=== PATIENT | male | born 1975 | race Caucasian/White ===

== ENCOUNTER 2021-12-23 02:33 | Emergency (ER) | payer OTHER, SELFPAY ==
--- NOTE | ~2021-12-23 | XR_ITS ---
EXAMINATION: XR SHOULDER, RIGHT CLINICAL INFORMATION: Pain COMPARISON: None TECHNIQUE: Three views of the right shoulder. FINDINGS: No acute fracture or dislocation. Small marginal ossified is along the acromioclavicular joint. Small subacromial enthesophyte. Small deltoid original enthesophyte. Soft tissues otherwise unremarkable. XR/XR shoulder RT min 2V IMPRESSION: No acute fracture or dislocation.
[2021-12-23 02:43] VITALS: BP 140/95; PULSE 88; RESP 16; TEMP 36.8; O2SAT 98; BMI 32.5
--- NOTE | 2021-12-23 03:03 | ED.EXTPRO ---
HPI - Extremity Problem General Chief complaint: Extremity Injury, Upper Stated complaint: Shoulder pain Time Seen by Provider: 12/23/21 03:03 Source: patient Mode of arrival: ambulatory Limitations: no limitations History of Present Illness HPI Narrative: Patient been having right shoulder pain for last 3 weeks after minor lifting of the weight. Tonight patient was over reaching rock picker his child and noticed increased pain pain localized on the lateral aspect of the right shoulder without any deformity no sensory level no weakness of the hand patient unable to lift the right arm above 70 degree because the pain Related Data Previous Rx's Medication Instructions Recorded ibuprofen 600 mg tablet 600 mg PO Q6H PRN pain #30 tabs 12/23/21 oxycodone-acetaminophen 5 mg-325 1 tab PO Q6H PRN pain #20 tabs 12/23/21 mg tablet (Percocet) Allergies Allergy/AdvReac Type Severity Reaction Status Date / Time sulfamethoxazole Allergy Mild SEVERE Unverified 03/25/20 17:51 [From Bactrim] ITCHINESS trimethoprim [From Bactrim] Allergy Mild SEVERE Unverified 03/25/20 17:51 ITCHINESS clindamycin [Clindamycin] Allergy Unknown RASH Unverified 03/25/20 17:51 Sulfa (Sulfonamide Allergy Unknown Verified 05/03/17 00:00 Antibiotics) Clindamycin HCl Allergy Unknown Uncoded 05/03/17 00:00 From KEFLEX Allergy Unknown RASH Uncoded 03/25/20 17:51 Review of Systems Review of Systems: Yes all other systems are reviewed and are negative [facility] Social History Social History Advance Directives: No Physical Exam Vital Signs: Vital Signs: Last Vital Signs Temp 98.2 F 12/23/21 02:43 Pulse 88 12/23/21 02:43 Resp 16 12/23/21 02:43 BP 140/95 H 12/23/21 02:43 Pulse Ox 98 12/23/21 02:43 O2 Del Method 12/23/21 02:43 BMI result Body Mass Index 32.5 Appearance: Alert. Oriented X3. No acute distress. Neck: Normal inspection. Neck supple. CVS: Normal heart rate and rhythm. Pulses normal. Respiratory: No respiratory distress. Equal air entry bilateral, Abdomen: Soft and nontender. Bowel sounds are present, Skin: Skin warm and dry. Normal skin color. Normal skin turgor. Extremities: No lower extremity edema. No calf tenderness , Tash's test positive on the right arm also painful external rotation neurovascular intact Neuro: Oriented X 3. No motor deficit. MDM - Extremity (Nontraumatic) MDM Narrative Medical decision making narrative: Patient clinically has R supraspinatus strain questionable partial tear with Tash's test positive, sling appliedand advised to follow-up with orthopedic Discharge Plan Discharge Clinical Impression: Rotator cuff strain Patient Disposition: Home, Self-Care Instructions: Rotator Cuff Injury (ED) Additional Instructions: You likely have partial rotator cuff tear Wear the sling for support Pain medication as advised Follow with Orthopedics for further evaluation including MRI Prescriptions: New oxycodone-acetaminophen [Percocet] 5-325 mg tablet 1 tab PO Q6H PRN (Reason: pain) Qty: 20 0RF Rx Instructions: Partial Fill upon patient request. ibuprofen 600 mg tablet 600 mg PO Q6H PRN (Reason: pain) Qty: 30 0RF
== END 2021-12-23 04:06 | disposition home or self-care (01) ==
PROVIDERS: Emergency Provider Internal Medicine
DX: S46.011A Strain of muscle(s) and tendon(s) of the rotator cuff of right shoulder, initial encounter (principal); X50.0XXA Overexertion from strenuous movement or load, initial encounter; Y93.9 Activity, unspecified; Y92.9 Unspecified place or not applicable; Y99.9 Unspecified external cause status
CPT/HCPCS: 73030; 99282; 99283

== ENCOUNTER 2023-01-23 13:41 | Outpatient (AMB) | payer OTHER, SELFPAY ==
--- NOTE | 2023-01-23 13:50 | MHC.PC.OV ---
Vital Signs 01/23/23 13:53 Height 5 ft 9 in Weight 234 lb BMI 34.6 BP 128/86 Blood Pressure Location Rt brachial Position Sitting Pulse 83 Pulse Source Pulse Oximeter Pulse Oximetry (%) 97 Oxygen Delivery Method Room Air Intake Visit Reasons: SCREENING UNIT REGISTERED NURSE-Requesting Physical Exam Allergies sulfamethoxazole [From Bactrim] Allergy (Mild, Verified 01/23/23 13:55) SEVERE ITCHINESS trimethoprim [From Bactrim] Allergy (Mild, Verified 01/23/23 13:55) SEVERE ITCHINESS clindamycin [Clindamycin] Allergy (Unknown, Verified 01/23/23 13:55) RASH Sulfa (Sulfonamide Antibiotics) Allergy (Unknown, Verified 01/23/23 13:55) breathing Clindamycin HCl Allergy (Unknown, Uncoded 01/23/23 13:55) Wheezing From KEFLEX Allergy (Unknown, Uncoded 03/25/20 17:51) RASH Medication List - Last Reconciled 01/23/23 by Jc Kaiser MD Tobacco use date assessed: 01/23/23 Dental Screening Dental Screen Date: 01/23/23 Did you have a dental visit in the last 12 months?: Yes Did you have a dental problem in the last 6 months where you did not have access to dental care?: No Was dental information given to patient?: No HPI SCREENING UNIT REGISTERED NURSE-Requesting Physical Exam HPI Details 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, 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, patient says that it is not exactly a pain but a feeling of discomfort which comes suddenly when he is upset or have a very physical day and then it gets better History of renal calculi, off and on having a weak urinary streams and sometimes frequency of urination Patient have lot of different size and color of most in the back has not seen any senior architect/design manager BMI is elevated at 34.6, need to lose weight Plan: I have ordered labs to be done fasting Flomax 0.4 mg sent to see if patient benefit from it Dermatology referral placed Follow-up 6 weeks [facility] Social History Housing: Apartment Patient Tobacco Use Status: Never used Tobacco e-Cigarette/Vaping Use: Never Used Cognitive needs: No Hearing needs: No Vision needs: No Questionnaire AUDIT C Alcohol Use Questionnaire (AUDIT-C) 1. How often do you have a drink containing alcohol?: Never 3. How often do you have six or more drinks on one occasion?: Never Total Score: 0 Score Reviewed/Action Taken: Yes Review of Systems Const Denies chills, Denies fever(s) and Denies headache(s) Eyes Denies blurry vision ENT Denies headache(s), Denies nasal discharge, Denies nasal obstruction, Denies odynophagia and Denies sinus pain Card Denies chest pain at rest and Denies chest pain with activity Resp Denies cough and Denies hemoptysis GI Denies diarrhea, Denies odynophagia, Denies vomiting and Denies hematemesis Reports as per HPI Musc Denies abnormal gait Skin/Breast Reports as per HPI Neuro Denies Neuro-related abnormal movements, Denies Abnormal speech present, Denies abnormal gait, Denies headache(s) and Denies Sensory deficit (Neuro) Psych Denies mood swings and Denies paranoia Endo Reports as per HPI Prasanna/Lymph Reports as per HPI Aller/Immun Reports as per HPI Physical exam (Primary Care) Vital Signs: Last Vital Signs Pulse 83 01/23/23 13:53 BP 128/86 01/23/23 13:53 Pulse Ox 97 01/23/23 13:53 Oxygen Delivery Method Room Air 01/23/23 13:53 BMI result Body Mass Index 34.6 Tobacco/Smoking Status: Tobacco use Status Tobacco use date assessed 01/23/23 01/23/23 13:58 Patient Tobacco Use Status Never used Tobacco 01/23/23 13:58 e-Cigarette/Vaping Use Never Used 01/23/23 13:58 Const General: cooperative, comfortable and no acute distress Orientation/consciousness: patient oriented x3 HENMT Head: Yes normocephalic and Yes atraumatic Eyes General: appearance normal, both eyes and all related structures Pupils: Equal, round and reactive pupils present EOM: EOMs intact bilaterally Neck Neck: Yes supple and No lymphadenopathy Thyroid: Thyroid normal Lymphatic: no lymphadenopathy noted Resp Effort & Inspection: normal respiratory effort and able to speak in complete sentences Auscultation: clear to auscultation bilaterally Cardio Heart sounds: S1 normal heart sound present and S2 normal heart sound present GI Palpation (GI): Soft to palpation and nontender Auscultation: normal bowel sounds General: Yes no CVA tenderness Back/Spine/Pelvis Back: no CVA tenderness Skin General skin exam: elasticity normal and turgor normal Neuro General: patient oriented x3 and gait normal Cranial nerves: Yes Equal, round and reactive pupils present Speech: No Abnormal speech present Sensory Exam: No Sensory deficit (Neuro) Coordination: tandem gait normal and Romberg test negative Extrem General: Yes normal exam except as noted and No edema Assessment and Plan Assessment & Plan (1) Encounter for general adult medical examination with abnormal findings: Code(s): Z00.01 - Encounter for general adult medical examination with abnormal findings (2) History of renal calculi: Code(s): Z87.442 - Personal history of urinary calculi (3) Lower back pain: Code(s): M54.50 - Low back pain, unspecified (4) Bladder disorder: Code(s): N32.9 - Bladder disorder, unspecified (5) Obesity due to excess calories: Code(s): E66.09 - Other obesity due to excess calories (6) Marijuana user: Code(s): F12.90 - Cannabis use, unspecified, uncomplicated Plan 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, 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, patient says that it is not exactly a pain but a feeling of discomfort which comes suddenly when he is upset or have a very physical day and then it gets better History of renal calculi, off and on having a weak urinary streams and sometimes frequency of urination Patient have lot of different size and color of most in the back has not seen any senior architect/design manager BMI is elevated at 34.6, need to lose weight Plan: I have ordered labs to be done fasting Flomax 0.4 mg sent to see if patient benefit from it Dermatology referral placed Smokes marijuana daily Follow-up 6 weeks Orders: Orders Comprehensive [place]. Panel Fast Today E66.09 - Other obesity due to excess calories, M54.50 - Low back pain, unspecified, N32.9 - Bladder disorder, unspecified, Z00.01 - Encounter for general adult medical examination with abnormal findings, Z87.442 - Personal history of urinary calculi Lipid Panel Today E66.09 - Other obesity due to excess calories, M54.50 - Low back pain, unspecified, N32.9 - Bladder disorder, unspecified, Z00.01 - Encounter for general adult medical examination with abnormal findings, Z87.442 - Personal history of urinary calculi Prostate Specific Antigen Today E66.09 - Other obesity due to excess calories, M54.50 - Low back pain, unspecified, N32.9 - Bladder disorder, unspecified, Z00.01 - Encounter for general adult medical examination with abnormal findings, Z87.442 - Personal history of urinary calculi Vitamin D 25-OH (D2 and D3) Today E66.09 - Other obesity due to excess calories, M54.50 - Low back pain, unspecified, N32.9 - Bladder disorder, unspecified, Z00.01 - Encounter for general adult medical examination with abnormal findings, Z87.442 - Personal history of urinary calculi Complete Blood Count Auto Diff Today E66.09 - Other obesity due to excess calories, M54.50 - Low back pain, unspecified, N32.9 - Bladder disorder, unspecified, Z00.01 - Encounter for general adult medical examination with abnormal findings, Z87.442 - Personal history of urinary calculi TSH reflex Free T4 Today E66.09 - Other obesity due to excess calories Referrals Dermatology Referral Z12.83 - Encounter for screening for malignant neoplasm of skin Medications: New tamsulosin (Flomax) 0.4 mg PO DAILY 30 caps 0RF Coding Level of Care Code New Pt Prev Care 40-64y(20360) Diagnoses Encounter for general adult medical examination with abnormal findings Z00.01 History of renal calculi Z87.442 Lower back pain M54.50 Bladder disorder N32.9 Obesity due to excess calories E66.09 Marijuana user F12.90
[2023-01-23 13:53] VITALS: BP 128/86; PULSE 83; O2SAT 97; BMI 34.6
== END 2023-01-23 14:20 | disposition home or self-care (01) ==
PROVIDERS: Visit Provider Internal Medicine
DX: Z00.01 Encounter for general adult medical examination with abnormal findings (principal); Z87.442 Personal history of urinary calculi; Z68.34 Body mass index [BMI] 34.0-34.9, adult; M54.50 Low back pain, unspecified; N32.9 Bladder disorder, unspecified; E66.09 Other obesity due to excess calories; F12.90 Cannabis use, unspecified, uncomplicated
CPT/HCPCS: 99386

== ENCOUNTER 2023-01-24 09:27 | Outpatient (REF) | payer OTHER, SELFPAY ==
[2023-01-24 11:30] LABS: MANUAL DIFF FLAG NO
[2023-01-24 11:42] LABS: Basophils Percent Auto 0.5 % (0-2); Eosinophils Absolute Auto 0.2 X10*3/uL (0.0-0.4); Eosinophils Percent Auto 2.6 % (0-4); Hematocrit 46.3 % (42.0-52.0); Hemoglobin 15.4 g/dl (14.0-18.0); Imm Gran Abs Auto 0.04 X10*3/uL (0.00-0.03); Imm Gran Pct Auto 0.5 % (0.0-0.4); Lymphocytes Absolute Auto 2.2 X10*3/uL (1.2-4.9); Lymphocytes Percent Auto 29.4 % (20-40); Mean Corpuscular HGB Conc 33.3 g/dl (31.0-36.0); Mean Corpuscular Hemoglobin 30.1 pg (27.0-33.0); Mean Corpuscular Volume 90.4 fL (80.0-98.0); Mean Platelet Volume 9.9 fL (9.4-12.4); Monocytes Absolute Auto 0.6 X10*3/uL (0.1-1.2); Monocytes Percent Auto 7.5 % (2-11); Neutrophils Absolute Auto 4.4 x10*3/uL (2.0-8.3); Neutrophils Percent Auto 59.5 % (45-73); Platelet Count 244 X10*3/uL (160-400); Red Blood Count 5.12 X10*6/uL (4.60-5.80); Red Cell Distribution Width 11.9 % (11.0-16.0); White Blood Count 7.3 X10*3/uL (4.8-10.8)
[2023-01-24 13:06] LABS: Prostate Specific Antigen 0.58 ng/mL (<0.05-4.0)
[2023-01-24 22:05] LABS: Alanine Aminotransferase 25 U/L (0-40); Albumin Level 4.4 g/dL (3.5-5.0); Alkaline Phosphatase 56 U/L (39-117); Anion Gap 14 (12-20); Aspartate Amino Transferase 17 U/L (5-37); Bilirubin Total 0.3 mg/dL (0.0-1.0); Blood Urea Nitrogen 12 mg/dL (9-16); Calcium 9.5 mg/dL (8.4-10.2); Carbon Dioxide 24 mmol/L (22-29); Chloride 107 mmol/L (96-108); Cholesterol 178 mg/dL; Estimated Glomerular Filt Rate > 60; Glucose Fasting 84 mg/dL (60-99); HDL Cholesterol 35 mg/dL; LDL Cholesterol Calculated 89 mg/dl; Potassium 3.8 mmol/L (3.3-5.1); Sodium 141 mmol/L (135-145); Total Protein 6.9 g/dL (6.5-8.0); Triglycerides 271 mg/dL
[2023-01-24 22:09] LABS: TSH reflex Free T4 1.09 uIU/mL (0.32-4.0)
[2023-01-30 17:59] LABS: Vitamin D 25-OH, D2 <4 ng/mL; Vitamin D 25-OH, D3 28 ng/mL; Vitamin D 25-OH, Total 28 ng/mL (30-100)
== END 2023-01-24 09:28 | disposition home or self-care (01) ==
LOC: HO.HMGCLDS 09:27
PROVIDERS: PCP Internal Medicine; Visit Provider Internal Medicine
DX: Z00.01 Encounter for general adult medical examination with abnormal findings (principal); Z12.5 Encounter for screening for malignant neoplasm of prostate; E66.09 Other obesity due to excess calories; M54.50 Low back pain, unspecified; N32.9 Bladder disorder, unspecified; Z87.442 Personal history of urinary calculi
CPT/HCPCS: 36415; 80053; 80061; 82306; 84153; 84443; 85025

== ENCOUNTER 2023-02-13 13:47 | Outpatient (AMB) | payer OTHER, SELFPAY ==
[2023-02-13 13:55] VITALS: BP 158/92; PULSE 104; O2SAT 97; BMI 34.5
--- NOTE | 2023-02-13 13:55 | MHC.PC.OV ---
Vital Signs 02/13/23 13:55 02/13/23 14:08 Height 5 ft 9 in Weight 233 lb 6 oz BMI 34.5 BP 158/92 H 146/78 H Blood Pressure Location Lt brachial Lt brachial Position Sitting Sitting Pulse 104 H Pulse Source Pulse Oximeter Pulse Oximetry (%) 97 Oxygen Delivery Method Room Air Intake Visit Reasons: 3wk follow up Allergies sulfamethoxazole [From Bactrim] Allergy (Mild, Verified 02/13/23 13:55) SEVERE ITCHINESS trimethoprim [From Bactrim] Allergy (Mild, Verified 02/13/23 13:55) SEVERE ITCHINESS clindamycin [Clindamycin] Allergy (Unknown, Verified 02/13/23 13:55) RASH Sulfa (Sulfonamide Antibiotics) Allergy (Unknown, Verified 02/13/23 13:55) breathing Clindamycin HCl Allergy (Unknown, Uncoded 01/23/23 13:55) Wheezing From KEFLEX Allergy (Unknown, Uncoded 03/25/20 17:51) RASH Medication List - Last Reconciled 02/13/23 by Jc Kaiser MD tamsulosin (Flomax) 0.4 mg PO DAILY Tobacco use date assessed: 02/13/23 Dental Screening Dental Screen Date: 02/13/23 Did you have a dental visit in the last 12 months?: Yes Did you have a dental problem in the last 6 months where you did not have access to dental care?: No Was dental information given to patient?: No HPI 3wk follow up HPI Details 3 wk f/u labs labs are fine except Vit D level is slightly low, i have sent Rx for that Flomax was started as he complained of freq of urination and weak stream He is feeling better tells me that he is urinating normally now I have sent a refill on Flomax he is to continue that Blood pressure is in did not with elevated heart rate we rechecked it after. 15 minutes And it was 146/78, pt has Bp monitor at home and he will start monitoring his bp he will let me know if readings run above 140 most of times Follow-up 6 months [facility] Social History Housing: Apartment Patient Tobacco Use Status: Never used Tobacco e-Cigarette/Vaping Use: Never Used Cognitive needs: No Hearing needs: No Vision needs: No Questionnaire PHQ-9 Over the last 2 weeks, how often have you been bothered by any of the following problems? 37396 - PHQ-9 Billing: Patient declined-do not bill Source: Developed by Drs. Armen Moore, Emily Fragoso, Hay Veloz and colleagues, with an educational richard from [employer]. AUDIT C Alcohol Use Questionnaire (AUDIT-C) 1. How often do you have a drink containing alcohol?: Never 3. How often do you have six or more drinks on one occasion?: Never Total Score: 0 Score Reviewed/Action Taken: Yes Review of Systems Const Denies chills and Denies fever(s) ENT Denies epistaxis and Denies nasal discharge Card Denies chest pain Resp Denies chest congestion, Denies cough and Denies hemoptysis GI Denies diarrhea and Denies nausea Skin/Breast Denies rash Neuro Reports no additional complaints Psych Reports no additional complaints Endo Reports no additional complaints Physical exam (Primary Care) Vital Signs: Last Vital Signs Pulse 104 H 02/13/23 13:55 BP 146/78 H 02/13/23 14:08 Pulse Ox 97 02/13/23 13:55 Oxygen Delivery Method Room Air 02/13/23 13:55 BMI result Body Mass Index 34.5 Tobacco/Smoking Status: Tobacco use Status Tobacco use date assessed 02/13/23 02/13/23 13:57 Patient Tobacco Use Status Never used Tobacco 02/13/23 13:57 e-Cigarette/Vaping Use Never Used 02/13/23 13:57 Const General: cooperative, comfortable and no acute distress Orientation/consciousness: patient oriented x3 HENID Head: Yes normocephalic Eyes General: appearance normal, both eyes and all related structures Neck Neck: Yes supple Resp Effort & Inspection: normal respiratory effort, no cough and no stridor Cardio Rhythm: regular rhythm Heart sounds: S1 normal heart sound present and S2 normal heart sound present Skin General skin exam: turgor normal Neuro General: patient oriented x3, tone normal and moves all extremities Extrem Right lower extremity: no edema Left lower extremity: no edema Assessment and Plan Assessment & Plan (1) BPH with urinary obstruction: Code(s): N40.1 - Benign prostatic hyperplasia with lower urinary tract symptoms; N13.8 - Other obstructive and reflux uropathy (2) Obesity due to excess calories: Code(s): E66.09 - Other obesity due to excess calories (3) Elevated blood pressure reading: Code(s): R03.0 - Elevated blood-pressure reading, without diagnosis of hypertension (4) Vitamin D deficiency: Code(s): E55.9 - Vitamin D deficiency, unspecified Plan 3 wk f/u labs labs are fine except Vit D level is slightly low, i have sent Rx for that Flomax was started as he complained of freq of urination and weak stream He is feeling better tells me that he is urinating normally now I have sent a refill on Flomax he is to continue that Blood pressure is in did not with elevated heart rate we rechecked it after. 15 minutes And it was 146/78, pt has Bp monitor at home and he will start monitoring his bp he will let me know if readings run above 140 most of times Follow-up 6 months Medications: New cholecalciferol (vitamin D3) 25 mcg PO DAILY 90 caps 1RF 90 days Refilled tamsulosin (Flomax) 0.4 mg PO DAILY 90 caps 1RF Coding Level of Care Code Est Pt Level 3 (76851) Diagnoses BPH with urinary obstruction N40.1; N13.8 Obesity due to excess calories E66.09 Elevated blood pressure reading R03.0 Vitamin D deficiency E55.9
[2023-02-13 14:08] VITALS: BP 146/78
== END 2023-02-13 15:16 | disposition home or self-care (01) ==
PROVIDERS: PCP Internal Medicine; Visit Provider Internal Medicine
DX: N40.1 Benign prostatic hyperplasia with lower urinary tract symptoms (principal); E55.9 Vitamin D deficiency, unspecified; E66.09 Other obesity due to excess calories; Z68.34 Body mass index [BMI] 34.0-34.9, adult; N13.8 Other obstructive and reflux uropathy; R03.0 Elevated blood-pressure reading, without diagnosis of hypertension
CPT/HCPCS: 99213

== ENCOUNTER 2023-08-24 09:09 | Outpatient (AMB) | payer OTHER, SELFPAY ==
[2023-08-24 09:14] VITALS: BP 136/92; PULSE 74; O2SAT 97; BMI 35.1
--- NOTE | 2023-08-24 09:14 | MHC.PC.OV ---
Vital Signs 08/24/23 09:14 Height 5 ft 9 in Weight 237 lb 6 oz BMI 35.1 BP 136/92 H Blood Pressure Location Lt brachial Position Sitting Pulse 74 Pulse Source Pulse Oximeter Pulse Oximetry (%) 97 Oxygen Delivery Method Room Air Intake Visit Reasons: follow up Allergies sulfamethoxazole [From Bactrim] Allergy (Mild, Verified 08/24/23 09:16) SEVERE ITCHINESS trimethoprim [From Bactrim] Allergy (Mild, Verified 08/24/23 09:16) SEVERE ITCHINESS clindamycin [Clindamycin] Allergy (Unknown, Verified 08/24/23 09:16) RASH Sulfa (Sulfonamide Antibiotics) Allergy (Unknown, Verified 08/24/23 09:16) breathing Clindamycin HCl Allergy (Unknown, Uncoded 01/23/23 13:55) Wheezing From KEFLEX Allergy (Unknown, Uncoded 03/25/20 17:51) RASH Medication List - Last Reconciled 08/24/23 by Jc Kaiser MD cholecalciferol (vitamin D3) 25 mcg PO DAILY 90 days tamsulosin (Flomax) 0.4 mg PO DAILY Tobacco use date assessed: 08/24/23 Dental Screening Dental Screen Date: 08/24/23 Did you have a dental visit in the last 12 months?: Yes Did you have a dental problem in the last 6 months where you did not have access to dental care?: No Was dental information given to patient?: Patient has dentist HPI follow up HPI Details Patient is a 47-year-old gentleman came in today for six-month follow-up appointment Patient is on Flomax for BPH, doing well, no side effects Vitamin-D deficiency: He took vitamin-D for a while and then stopped as he ran out of script I have sent refill for both medications He has appointment for physical exam in January we will repeat labs at that time. BMI is elevated 35.1 patient is aware and is trying to lose [facility] Social History Housing: Apartment Patient Tobacco Use Status: Never used Tobacco e-Cigarette/Vaping Use: Never Used Cognitive needs: No Hearing needs: No Vision needs: No Questionnaire AUDIT C Alcohol Use Questionnaire (AUDIT-C) 1. How often do you have a drink containing alcohol?: Never 3. How often do you have six or more drinks on one occasion?: Never Total Score: 0 Score Reviewed/Action Taken: Yes Review of Systems Const All systems reviewed & are unremarkable except as noted in HPI and below Physical exam (Primary Care) Vital Signs: Last Vital Signs Pulse 74 08/24/23 09:14 BP 136/92 H 08/24/23 09:14 Pulse Ox 97 08/24/23 09:14 Oxygen Delivery Method Room Air 08/24/23 09:14 BMI result Body Mass Index 35.1 Tobacco/Smoking Status: Tobacco use Status Tobacco use date assessed 08/24/23 08/24/23 09:17 Patient Tobacco Use Status Never used Tobacco 08/24/23 09:17 e-Cigarette/Vaping Use Never Used 08/24/23 09:17 Const General: no acute distress Orientation/consciousness: patient oriented x3 Eyes General: appearance normal, both eyes and all related structures Resp Effort & Inspection: normal respiratory effort and able to speak in complete sentences Auscultation: clear to auscultation bilaterally Neuro General: patient oriented x3 Psych Mental Status: mental status grossly normal Assessment and Plan Assessment & Plan (1) BPH with urinary obstruction: Code(s): N40.1 - Benign prostatic hyperplasia with lower urinary tract symptoms; N13.8 - Other obstructive and reflux uropathy (2) Obesity due to excess calories: Code(s): E66.09 - Other obesity due to excess calories Qualifiers: Body mass index: BMI 35.0-35.9 Obesity classification: adult class 2 (BMI 35 - 39.9) Serious obesity comorbidity presence: with serious comorbidity Qualified Code(s): E66.01 - Morbid (severe) obesity due to excess calories; Z68.35 - Body mass index [BMI] 35.0-35.9, adult (3) Vitamin D deficiency: Code(s): E55.9 - Vitamin D deficiency, unspecified (4) Diastolic hypertension: Code(s): I10 - Essential (primary) hypertension Plan Patient is a 47-year-old gentleman came in today for six-month follow-up appointment Patient is on Flomax for BPH, doing well, no side effects Vitamin-D deficiency: He took vitamin-D for a while and then stopped as he ran out of script I have sent refill for both medications He has appointment for physical exam in January we will repeat labs at that time. Diastolic blood pressure is slightly elevated at 92, which I feel will improve once patient lose some weight BMI is elevated 35.1 patient is aware and is trying to lose weight Orders: Orders Complete Blood Count Auto Diff Today E55.9 - Vitamin D deficiency, unspecified, E66.09 - Other obesity due to excess calories, I10 - Essential (primary) hypertension, N13.8 - Other obstructive and reflux uropathy, N40.1 - Benign prostatic hyperplasia with lower urinary tract symptoms Comprehensive Met. Panel Today E55.9 - Vitamin D deficiency, unspecified, E66.09 - Other obesity due to excess calories, I10 - Essential (primary) hypertension, N13.8 - Other obstructive and reflux uropathy, N40.1 - Benign prostatic hyperplasia with lower urinary tract symptoms LDL Cholesterol Direct Today E55.9 - Vitamin D deficiency, unspecified, E66.09 - Other obesity due to excess calories, I10 - Essential (primary) hypertension, N13.8 - Other obstructive and reflux uropathy, N40.1 - Benign prostatic hyperplasia with lower urinary tract symptoms Vitamin D 25-OH (D2 and D3) Today E55.9 - Vitamin D deficiency, unspecified, E66.09 - Other obesity due to excess calories, I10 - Essential (primary) hypertension, N13.8 - Other obstructive and reflux uropathy, N40.1 - Benign prostatic hyperplasia with lower urinary tract symptoms Prostate Specific Antigen Today E55.9 - Vitamin D deficiency, unspecified, E66.09 - Other obesity due to excess calories, I10 - Essential (primary) hypertension, N13.8 - Other obstructive and reflux uropathy, N40.1 - Benign prostatic hyperplasia with lower urinary tract symptoms Coding Level of Care Code Est Pt Level 3 (09522) Diagnoses BPH with urinary obstruction N40.1; N13.8 Class 2 severe obesity due to excess calories with serious comorbidity and body mass index (BMI) of 35.0 to 35.9 in adult E66.01; Z68.35 Body mass index: BMI 35.0-35.9 Obesity classification: adult class 2 (BMI 35 - 39.9) Serious obesity comorbidity presence: with serious comorbidity Vitamin D deficiency E55.9 Diastolic hypertension I10
== END 2023-08-24 11:10 | disposition home or self-care (01) ==
PROVIDERS: PCP Internal Medicine; Visit Provider Internal Medicine
DX: N40.1 Benign prostatic hyperplasia with lower urinary tract symptoms (principal); E66.01 Morbid (severe) obesity due to excess calories; Z68.35 Body mass index [BMI] 35.0-35.9, adult; N13.8 Other obstructive and reflux uropathy; E55.9 Vitamin D deficiency, unspecified; I10 Essential (primary) hypertension
CPT/HCPCS: 99213

== ENCOUNTER 2024-01-25 14:28 | Outpatient (AMB) | payer OTHER, SELFPAY ==
[2024-01-25 14:32] VITALS: BP 110/78; PULSE 67; O2SAT 97; BMI 33.7
--- NOTE | 2024-01-25 14:32 | A.OFFPC_ITS ---
Vital Signs 01/25/24 14:32 Height 5 ft 9 in Weight 228 lb 2 oz BMI 33.7 BP 110/78 Blood Pressure Location Rt brachial Position Sitting Pulse 67 Pulse Source Pulse Oximeter Pulse Oximetry (%) 97 Oxygen Delivery Method Room Air Intake Visit Reasons: PE Allergies sulfamethoxazole [From Bactrim] Allergy (Mild, Verified 01/25/24 14:33) SEVERE ITCHINESS trimethoprim [From Bactrim] Allergy (Mild, Verified 01/25/24 14:33) SEVERE ITCHINESS clindamycin [Clindamycin] Allergy (Unknown, Verified 01/25/24 14:33) RASH Sulfa (Sulfonamide Antibiotics) Allergy (Unknown, Verified 01/25/24 14:33) breathing Clindamycin HCl Allergy (Unknown, Uncoded 01/23/23 13:55) Wheezing From KEFLEX Allergy (Unknown, Uncoded 03/25/20 17:51) RASH Medication List - Last Reconciled 01/25/24 by Jc Kaiser MD cholecalciferol (vitamin D3) 25 mcg PO DAILY 90 days tamsulosin (Flomax) 0.4 mg PO DAILY Tobacco use date assessed: 01/25/24 Dental Screening Dental Screen Date: 01/25/24 Did you have a dental visit in the last 12 months?: Yes Did you have a dental problem in the last 6 months where you did not have access to dental care?: No Was dental information given to patient?: Patient has dentist HPI PE HPI Details Patient is a 48-year-old gentleman came in today for physical exam Patient is doing well offer no complaints Due for colonoscopy, referral placed Labs done last year reviewed with the patient vitamin-D level was low He is taking supplement Patient does not want to repeat labs this year He will return in 1 year for physical exam Going Flomax for BPH with good result. Smokes marijuana about 6 times a day and has been smoking for a while Patient says that he can stops without any withdrawals BMI is elevated need to lose weight PFSH Social History Housing: Apartment Patient Tobacco Use Status: Never used Tobacco e-Cigarette/Vaping Use: Never Used service: No Current occupational status: employed Cognitive needs: No Hearing needs: No Vision needs: No Questionnaire PHQ-9 Over the last 2 weeks, how often have you been bothered by any of the following problems? 1. Little interest or pleasure in doing things: not at all 2. Feeling down, depressed, or hopeless: not at all 3. Trouble falling or staying asleep, or sleeping too much: not at all 4. Feeling tired or having little energy: not at all 5. Poor appetite or overeating: not at all 6. Feeling bad about yourself - or that you are a failure or have let yourself or your family down: not at all 7. Trouble concentrating on things, such as reading the newspaper or watching television: not at all 9. Thoughts that you would be better off or of hurting yourself in some way: not at all Depression Screening Interpretation: Negative Depression Screening Done: Yes 34252 - PHQ-9 Billing: Yes Source: Developed by Drs. Armen Moore, Emily Fragoso, Hay Veloz and colleagues, with an educational richard from [employer]. Thrive Questionnaire Date Thrive assessed: 01/25/24 I am a: Patient What is your living situation today?: I have a steady place to live Within the past 12 months, did the food you bought not last and you didn't have the money to get more?: Sometimes True Within the past 12 months, did you worry whether your food would run out before you got money to buy more?: Never true Do you have trouble paying for medicines?: No Do you have trouble getting transportation to medical appointments?: No Do you have trouble paying your heating and electricity bill?: No Do you have trouble taking care of your child, family member or friend?: No Do you have trouble with day-to-day activities such as bathing, preparing meals, shopping, managing finances, etc.?: No Are you currently unemployed and looking for a job?: No Are you interested in more education?: No Please select the resources that you would like help with: Housing/Penitentiary Currently or been in a relationship where the following occur: No concerns reported THRIVE Score: 1 AUDIT C Alcohol Use Questionnaire (AUDIT-C) 1. How often do you have a drink containing alcohol?: Monthly or less 2. How many drinks containing alcohol do you have on a typical day when you are drinking?: 3 or 4 3. How often do you have six or more drinks on one occasion?: Less than monthly Total Score: 3 Score Reviewed/Action Taken: Yes PAULETTE-7 AMB Questionnaire PAULETTE-7 Date PAULETTE - 7 assessed: 01/25/24 Feeling nervous, anxious, or on edge: 0 = Not at all Not being able to stop or control worryin = Not at all Worrying too much about different things: 0 = Not at all Trouble relaxin = Not at all Being so restless that it is hard to sit still: 0 = Not at all Becoming easily annoyed or irritable: 0 = Not at all Feeling afraid as if something awful might happen: 0 = Not at all Total PAULETTE-7 score (0-4 normal; 5-9 mild; 10-14 moderate; 15-21 severe): 0 Source: Developed by Drs. Armen Moore, Emily Fragoso, Hay Veloz and colleagues, with an educational richard from [employer]. PAULETTE-7 Assessment Billing PAULETTE-7 Assessment Tool: PAULETTE-7 Assessment 36475 Review of Systems Const Denies chills, Denies fever(s) and Denies headache(s) Eyes Denies blurry vision ENT Denies headache(s), Denies nasal discharge, Denies nasal obstruction, Denies odynophagia and Denies sinus pain Card Denies chest pain at rest and Denies chest pain with activity Resp Denies cough and Denies hemoptysis GI Denies diarrhea, Denies odynophagia, Denies vomiting and Denies hematemesis Reports as per HPI Musc Denies abnormal gait Skin/Breast Reports as per HPI Neuro Denies Neuro-related abnormal movements, Denies Abnormal speech present, Denies abnormal gait, Denies headache(s) and Denies Sensory deficit (Neuro) Psych Denies mood swings and Denies paranoia Endo Reports as per HPI Prasanna/Lymph Reports as per HPI Aller/Immun Reports as per HPI Physical exam (Primary Care) Vital Signs: Last Vital Signs Pulse 67 01/25/24 14:32 BP 110/78 01/25/24 14:32 Pulse Ox 97 01/25/24 14:32 Oxygen Delivery Method Room Air 01/25/24 14:32 BMI result Body Mass Index 33.7 Tobacco/Smoking Status: Tobacco use Status Tobacco use date assessed 01/25/24 01/25/24 14:33 Patient Tobacco Use Status Never used Tobacco 01/25/24 14:33 e-Cigarette/Vaping Use Never Used 01/25/24 14:33 Depression Screening Interpretation: Negative Thrive Assessment: Date of Thrive Assessment Date Thrive assessed 01/25/24 01/25/24 14:33 Currently or been in a relationship where the following occur: No concerns reported Const General: cooperative, comfortable and no acute distress Orientation/consciousness: patient oriented x3 HENMT Head: Yes normocephalic and Yes atraumatic Eyes General: appearance normal, both eyes and all related structures Pupils: Equal, round and reactive pupils present EOM: EOMs intact bilaterally Neck Neck: Yes supple and No lymphadenopathy Thyroid: Thyroid normal Lymphatic: no lymphadenopathy noted Resp Effort & Inspection: normal respiratory effort and able to speak in complete sentences Auscultation: clear to auscultation bilaterally Cardio Heart sounds: S1 normal heart sound present and S2 normal heart sound present GI Palpation (GI): Soft to palpation and nontender Auscultation: normal bowel sounds General: Yes no CVA tenderness Back/Spine/Pelvis Back: no CVA tenderness Skin General skin exam: elasticity normal and turgor normal Neuro General: patient oriented x3 and gait normal Cranial nerves: Yes Equal, round and reactive pupils present Speech: No Abnormal speech present Sensory Exam: No Sensory deficit (Neuro) Coordination: tandem gait normal and Romberg test negative Extrem General: Yes normal exam except as noted and No edema Assessment and Plan Assessment & Plan (1) Encounter for general adult medical examination with abnormal findings: Code(s): Z00.01 - Encounter for general adult medical examination with abnormal findings (2) Colon cancer screening: Code(s): Z12.11 - Encounter for screening for malignant neoplasm of colon (3) Obesity due to excess calories: Code(s): E66.09 - Other obesity due to excess calories Qualifiers: Body mass index: BMI 35.0-35.9 Obesity classification: adult class 2 (BMI 35 - 39.9) Serious obesity comorbidity presence: with serious comorbidity Qualified Code(s): E66.01 - Morbid (severe) obesity due to excess calories; Z68.35 - Body mass index [BMI] 35.0-35.9, adult (4) BPH with urinary obstruction: Code(s): N40.1 - Benign prostatic hyperplasia with lower urinary tract symptoms; N13.8 - Other obstructive and reflux uropathy Plan Patient is a 48-year-old gentleman came in today for physical exam Patient is doing well offer no complaints Due for colonoscopy, referral placed Labs done last year reviewed with the patient vitamin-D level was low He is taking supplement Patient does not want to repeat labs this year He will return in 1 year for physical exam Going Flomax for BPH with good result. Smokes marijuana about 6 times a day and has been smoking for a while Patient says that he can stops without any withdrawals BMI is elevated need to lose weight Orders: Referrals Gastroenterology Referral Z12.11 - Encounter for screening for malignant neoplasm of colon Coding Level of Care Code Est Pt Level 3 (64716) Est Pt Prev Care 40-64y(55379) Diagnoses Encounter for general adult medical examination with abnormal findings Z00.01 Colon cancer screening Z12.11 Class 2 severe obesity due to excess calories with serious comorbidity and body mass index (BMI) of 35.0 to 35.9 in adult E66.01; Z68.35 Body mass index: BMI 35.0-35.9 Obesity classification: adult class 2 (BMI 35 - 39.9) Serious obesity comorbidity presence: with serious comorbidity BPH with urinary obstruction N40.1; N13.8 Additional Codes PAULETTE-7 Assessment Billing - PAULETTE-7 Assessment Tool: PAULETTE-7 Assessment 18649 ([id number])
== END 2024-01-25 14:54 | disposition home or self-care (01) ==
PROVIDERS: PCP Internal Medicine; Visit Provider Internal Medicine
DX: Z00.00 Encounter for general adult medical examination without abnormal findings (principal); Z12.11 Encounter for screening for malignant neoplasm of colon; E66.01 Morbid (severe) obesity due to excess calories; Z68.35 Body mass index [BMI] 35.0-35.9, adult; N40.1 Benign prostatic hyperplasia with lower urinary tract symptoms; N13.8 Other obstructive and reflux uropathy
CPT/HCPCS: 99396

== ENCOUNTER 2024-06-18 13:53 | Outpatient (AMB) | payer OTHER, SELFPAY ==
[2024-06-18 13:55] VITALS: BP 136/84; PULSE 92; O2SAT 98; BMI 33.4
--- NOTE | 2024-06-18 13:55 | A.OFFVIS_ITS ---
Vital Signs 06/18/24 13:55 Height 5 ft 9 in Weight 226 lb 3.108 oz BMI 33.4 BP 136/84 Blood Pressure Location Rt brachial Position Sitting Pulse 92 Pulse Source Pulse Oximeter Pulse Oximetry (%) 98 Oxygen Delivery Method Room Air Intake Visit Reasons: pre colonoscopy Intake Note: NEW PATIENT [facility] presents in office today for a scheduled colo scrn Prior hx of colo/egd? N initial Meds and Allergies reviewed? Y Any significant concerns or questions? NO pertinent fmhx. No significant concerns or sx. Pharmacy verified? 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: No Allergies sulfamethoxazole [From Bactrim] Allergy (Mild, Verified 06/18/24 13:55) SEVERE ITCHINESS trimethoprim [From Bactrim] Allergy (Mild, Verified 06/18/24 13:55) SEVERE ITCHINESS clindamycin [Clindamycin] Allergy (Unknown, Verified 06/18/24 13:55) RASH Sulfa (Sulfonamide Antibiotics) Allergy (Unknown, Verified 06/18/24 13:55) breathing Clindamycin HCl Allergy (Unknown, Uncoded 01/23/23 13:55) Wheezing From KEFLEX Allergy (Unknown, Uncoded 03/25/20 17:51) RASH HPI HPI pre colonoscopy: Details: 48 year old?male with past medical history of BPH, bladder disorder is here today for pre colonoscopy screening.? Patient was sent to us by his PCP.? This is his first colonoscopy screening.? Patient denies any gastrointestinal symptoms in the past or at present.? Denies any personal or family history of gastrointestinal disease, colon polyps, or CRC.? Denies history of difficulty with sedation or anesthesia in the past.? Negative for history of sleep apnea.? Denies any history of cardiac, renal, pulmonary, or hepatic disease.?? No history of infectious? diseases like hepatitis A, B, C, HIV or tuberculosis.? Patient is not on any anticoagulation [facility] Social History Housing: Apartment Patient Tobacco Use Status: Never used Tobacco e-Cigarette/Vaping Use: Never Used service: No Current occupational status: employed Cognitive needs: No Hearing needs: No Vision needs: No Review of Systems Const Denies weight gain and Denies weight loss ENT Reports no additional complaints, Denies dysphagia and Denies odynophagia Card Reports no additional complaints Resp Reports no additional complaints GI Denies abdominal pain, Denies belching, Denies melena, Denies bloating, Denies change in bowel habits, Denies dysphagia, Denies excessive flatus, Denies dyspepsia, Denies heartburn, Denies diarrhea, Denies loose stools, Denies nausea, Denies odynophagia and Denies vomiting Reports no additional complaints Musc Reports no additional complaints Neuro Reports no additional complaints Psych Reports no additional complaints Endo Reports no additional complaints Physical Exam Const General: healthy appearing and no acute distress Nutritional Appearance: obese Orientation/consciousness: patient oriented x3 Resp Effort & Inspection: normal respiratory effort, able to speak in complete sentences, no tracheal deviation and symmetric chest movement Auscultation: clear to auscultation bilaterally Cardio Rate: regular rate GI Inspection: Yes normal to inspection, No distended and Yes obesity Palpation (GI): Soft to palpation, not firm, nontender and No hepatosplenomegaly present Auscultation: normal bowel sounds General: Yes no CVA tenderness Back/Spine/Pelvis Back: no CVA tenderness Skin General skin exam: elasticity normal, turgor normal and dry skin Neuro General: patient oriented x3 Psych Appearance: grossly normal Mental Status: mental status grossly normal Assessment & Plan Assessment & Plan (1) Colon cancer screening: Code(s): Z12.11 - Encounter for screening for malignant neoplasm of colon Category: Medical Plan Patient denies any GI, cardiac or respiratory symptoms.? Denies any issues with anesthesia in the past.? Denies any history of sleep apnea.? No history infectious diseases in the past or present.? Not on any anticoagulation therapy.? No family or personal history of colon cancer or polyps.? Patient denies melena, hematochezia, unintentional weight loss or ribbon like stools.? Discussed at length the pre-procedure,? prep, diet & medications as well as what to expect prior, during and after the procedure.?? Stressed the importance of good bowel prep.? Recommended the use of Vaseline or Calmoseptine OTC & baby wipes with bowel movements to promote comfort.? ?Patient verbalizes understanding and agrees to plan of care.? He was given the opportunity to ask questions and all questions answered.? We will see him after the procedure.? Medications: New bisacodyl (Dulcolax (bisacodyl)) take 4 tabs at noon the day before your colonoscopy 20 mg (4 x 5 mg) PO ONCE 1 day 4 tabs 0RF Z12.11 - Encounter for screening for malignant neoplasm of colon polyethylene glycol 3350 (Miralax) As directed by gastroenterology department at [facility] 238 grams PO ONCE 238 grams 0RF Z12.11 - Encounter for screening for malignant neoplasm of colon Coding Level of Care Code New Pt Level 3 (54346) Diagnoses Colon cancer screening Z12.11 Time Spent (min) 40 Comment 30 minutes spent with patient and additional 10 minutes spent reviewing his records
== END 2024-06-18 15:11 | disposition home or self-care (01) ==
PROVIDERS: PCP Internal Medicine; Visit Provider Nurse Practitioner Family
DX: Z12.11 Encounter for screening for malignant neoplasm of colon (principal); Z01.818 Encounter for other preprocedural examination
CPT/HCPCS: 99203

== ENCOUNTER → 2024-06-18 13:53 | Outpatient (BNVA) | payer OTHER, SELFPAY | PROVIDERS: PCP Internal Medicine; Visit Provider Nurse Practitioner Family | DX: Z01.818 Encounter for other preprocedural examination (principal) | CPT/HCPCS: 99202 ==

== ENCOUNTER 2024-09-11 22:53 | Emergency (ER) | payer OTHER, SELFPAY ==
--- NOTE | ~2024-09-11 | XR_ITS ---
CLINICAL HISTORY: lacerations from glass, ?retained FB 3 view left hand Comparison: None Findings: No fractures or dislocations. No significant loss of joint space or osteophytes. No erosions. No radiopaque foreign body. IMPRESSION: 1. No acute findings This document has been electronically signed by: Adriel Ardon MD on 09/12/2024 01:02:35
[2024-09-11 22:58] VITALS: BP 136/89; PULSE 117; RESP 18; TEMP 36.4; O2SAT 96; BMI 33.4
--- NOTE | 2024-09-12 00:27 | ED.WOUNDLAC ---
HPI - Wound/Laceration General Chief Complaint: Wound/Laceration Stated Complaint: left hand laceration Time Seen by Provider: 09/12/24 00:23 Source: patient Mode of arrival: ambulatory Limitations: no limitations History of Present Illness ED Provider: Dori Wellington NP HPI narrative: patient is a 48-year-old male, right hand dominant, who presents emergency department for evaluation of accidental laceration sustained to the left hand after tripping over his cat resulting in falling onto a glass door. Denies head strike or LOC. denies use of anticoagulants. Related Data Previous Rx's ?Medication ?Instructions ?Recorded cholecalciferol (vitamin D3) 25 25 mcg PO DAILY 90 days #90 caps 02/13/23 mcg (1,000 unit) capsule tamsulosin 0.4 mg capsule (Flomax) 0.4 mg PO DAILY #90 caps 03/21/24 bisacodyl 5 mg tablet,delayed 20 mg (4 x 5 mg) PO ONCE 1 day #4 06/18/24 release (Dulcolax (bisacodyl)) tabs polyethylene glycol 3350 17 238 g PO ONCE #238 grams 06/18/24 gram/dose oral powder (Miralax) Allergies Allergy/AdvReac Type Severity Reaction Status Date / Time sulfamethoxazole Allergy Mild SEVERE Verified 09/11/24 23:02 [From Bactrim] ITCHINESS trimethoprim [From Bactrim] Allergy Mild SEVERE Verified 09/11/24 23:02 ITCHINESS clindamycin [Clindamycin] Allergy Unknown RASH Verified 09/11/24 23:02 Sulfa (Sulfonamide Allergy Unknown breathing Verified 09/11/24 23:02 Antibiotics) Clindamycin HCl Allergy Unknown Wheezing Uncoded 09/11/24 23:02 From KEFLEX Allergy Unknown RASH Uncoded 09/11/24 23:02 Review of Systems Review of Systems: Yes all other systems are reviewed and are negative PMFSH Past Medical History Attestation statement: The following information was validated with the patient. Source: old records reviewed Social History Social History Housing: Apartment Patient Tobacco Use Status: Never used Tobacco e-Cigarette/Vaping Use: Never Used Advance Directives: No service: No Current occupational status: employed Cognitive needs: No Hearing needs: No Vision needs: No Physical Exam Vital Signs: Vital Signs: Last Vital Signs Temp 97.6 F 09/11/24 22:58 Pulse 117 H 09/11/24 22:58 Resp 18 09/11/24 22:58 BP 136/89 09/11/24 22:58 Pulse Ox 96 09/11/24 22:58 O2 Del Method Room Air 09/11/24 22:58 BMI result Body Mass Index 33.4 Appearance: Alert.?Oriented to person, place and time. No acute distress.?Normal affect. Head: Normocephalic, atraumatic Eyes: Pupils equal, round and reactive to light.? ENT: Pharynx normal.?? Neck: Normal inspection.? Neck supple.?? full range of motion. CVS: Heart sounds normal. Normal heart rate and rhythm.? Pulses normal.?? Respiratory: No respiratory distress.? Lung sounds clear to auscultation bilaterally? Skin: Skin warm and dry.? Normal skin color.? Neuro: Moves all extremities spontaneously. Sensation intact bilaterally. Ambulates with normal steady gait. Medications Administered Discontinued Medications Generic Name Dose Route Start Last Admin Trade Name Freq PRN Reason Stop Dose Admin Lidocaine HCl 5 ml 09/12/24 00:43 09/12/24 01:27 Lidocaine Hcl 1 % Mpf 5 Ml Vial SUBCUT 09/12/24 00:44 5 ml ONCE ONE Administration Medical Decision Making Medical Decision Making MDM Narrative: patient is a 48-year-old male past medical history of BPH, right hand dominant who presents emergency department for evaluation of accidental lacerations to the left hand sustained from falling onto a glass door. he has a 0.25 cm superficial laceration between the webbing of the thumb and 2nd digit without active bleeding, a superficial 0.25 cm laceration to the dorsal aspect of the 4th digit just distal to the MCP, and a 2.5cm laceration on the dorsum of the hand with minimally exposed adipose tissue which will require repair. XR was obtained to exclude retained foreign body. Reports last tetanus vaccination has been within 5 years. Laceration repair under aseptic technique as per procedural portion of this note with sutures. Discussed indication for improvement hemostasis of wound and healing time. Patient acknowledged understanding. Wound with sterile saline irrigation draped in usual fashion with the use of chlorhexidine. Closure with 2 simple intermittent sutures using 5-0 nylon. Patient tolerated well, no complications. Discussed reasons to return including fever or chills, erythema, swelling, pain, purulence or odor from the wound. Advised to return for suture removal in 10-14 days. Differential Diagnosis Differential Diagnoses: The differential diagnosis associated with the presentation includes ( Laceration, retained foreign body, uncontrolled bleeding) Independent Interpretation I performed an independent interpretation of an: Plain X-Ray ( no retained foreign bodies. No acute osseous abnormality) Radiology Impression Discussion of test interpretation with radiology: I have reviewed the radiologist's reading. Radiologist Impression: 3 view left hand Comparison: None Findings: No fractures or dislocations. No significant loss of joint space or osteophytes. No erosions. No radiopaque foreign body. IMPRESSION: 1. No acute findings External Record Review External record reviewed: Outpatient record Procedures Laceration Laceration 1: Site: hand Side (If applicable): left Size (cm): 2 Description: linear Depth: simple, single layer Local Anesthetic: lidocaine 1% Amount of anesthesia used (mL): 1 Pre-repair: wound explored, irrigated extensively and deep structures intact Skin layer closed with: nylon Size (cm): 4-0 Number of sutures: 2 Technique: simple, interrupted Discharge Plan Discharge Clinical Impression: Laceration of hand Qualifiers: Encounter type: initial encounter Foreign body presence: without foreign body Laterality: left Qualified Code(s): S61.412A - Laceration without foreign body of left hand, initial encounter Patient Disposition: Home, Self-Care Instructions: Laceration (ED) Additional Instructions: You may clean the area gently slowly with warm water and mild non scented soap over the next 2 days, dry the area afterwards, otherwise should remain dry until removed. Avoid prolonged soaking in water such as swimming, soaking in the bath. Sutures will need to be removed in 10-14 days, you may return back to emergency department or follow-up with your primary care doctor for removal Return with any new or worsening symptoms or concerns such as increasing pain, redness, swelling, pus-like discharge, fevers or chills. Prescriptions: No Action tamsulosin [Flomax] 0.4 mg capsule 0.4 mg PO DAILY Qty: 90 1RF cholecalciferol (vitamin D3) 25 mcg (1,000 unit) capsule 25 mcg PO DAILY 90 Days Qty: 90 1RF bisacodyl [Dulcolax (bisacodyl)] 5 mg tablet,delayed release (/EC) 20 mg PO ONCE 1 Days Qty: 4 0RF Rx Instructions: take 4 tabs at noon the day before your colonoscopy polyethylene glycol 3350 [Miralax] 17 gram/dose powder 238 g PO ONCE Qty: 238 0RF Rx Instructions: As directed by gastroenterology department at [facility] Print Language: Romansh
[2024-09-12] MEDS: Lidocaine HCl 1 % MPF 5 ML VIAL SUBCUT (01:27)
[2024-09-12 01:50] VITALS: BP 128/72; PULSE 89; RESP 16; TEMP 36.8; O2SAT 99
== END 2024-09-12 01:51 | disposition home or self-care (01) ==
PROVIDERS: Emergency Provider Emergency Medicine; PCP Internal Medicine
DX: S61.412A Laceration without foreign body of left hand, initial encounter (principal); W01.110A Fall on same level from slipping, tripping and stumbling with subsequent striking against sharp glass, initial encounter; Y93.9 Activity, unspecified; Y92.9 Unspecified place or not applicable; Y99.9 Unspecified external cause status
CPT/HCPCS: 12001; 73130; 99284; J2003

== ENCOUNTER → 2024-09-12 00:23 | Outpatient (BNV) | payer OTHER, SELFPAY | PROVIDERS: Emergency Provider Emergency Medicine; PCP Internal Medicine; Visit Provider Radiology Diagnostic Radiology | DX: S60.551A Superficial foreign body of right hand, initial encounter (principal) | CPT/HCPCS: 73130 ==

== ENCOUNTER 2024-09-29 05:47 | Inpatient (IN) | payer OTHER, SELFPAY ==
--- NOTE | ~2024-09-29 | US_ITS ---
EXAMINATION: US ABDOMEN LIMITED CLINICAL INFORMATION: Right upper quadrant/epigastric pain. Nausea and vomiting. Gallbladder cyst abnormality on CT exam. COMPARISON: Correlation made with CT abdomen and pelvis 09/29/2024. TECHNIQUE: Real-time limited imaging of the right upper quadrant abdominal viscera. FINDINGS: PANCREAS: Visualized portions are unremarkable. LIVER: Liver is mildly enlarged, with right hepatic lobe measuring 17.1 cm. The liver contour is normal. Mildly diffusely increased hepatic echogenicity is suggestive of steatosis. No suspicious focal lesion. There is no intrahepatic biliary duct dilatation seen. GALLBLADDER: There is a 2.5 x 2.2 cm gallstone impacted within the gallbladder neck. The gallbladder is mildly distended and filled with low-level internal echoes, possibly sludge versus infection. No gross wall bladder wall thickening or pericholecystic fluid. Negative sonographic Browne's sign although per technologist note, patient has been medicated. COMMON BILE DUCT: Normal in caliber measuring 0.5 cm in diameter. FREE FLUID: None. US/US abdomen limited IMPRESSION: 1. There is a 2.5 cm cholesterol stone impacted in the neck of the gallbladder, correlating with the abnormality seen on CT exam. In addition, the gallbladder is filled with low level internal echoes, possibly sludge versus infection. Findings are highly suspect for acute cholecystitis. 2. Mild hepatomegaly with mildly increased hepatic echogenicity suggesting steatosis. 3. No biliary ductal dilatation. Electronically signed by: Evin Houser MD 09/29/2024 12:39 PM EDT
--- NOTE | ~2024-09-29 | CT_ITS ---
EXAMINATION: CT ABDOMEN PELVIS WITH IV CONTRAST HISTORY: white count, epigastric pain, cramping, nausea COMPARISON: Comparison is made with the prior examination dated 12/15/2018. TECHNIQUE: CT scan of the abdomen and pelvis was performed following administration of 85 mL Omnipaque 350 using standard departmental protocol. Coronal and sagittal reformatted images were generated and reviewed. Oral contrast material was not administered at the request of the referring physician. This CT exam was performed with one or more of the following dose reduction techniques: automated exposure control, adjustment of the mA and/or kV according to patient size, use of iterative reconstruction technique. DLP: 564 mGy-cm FINDINGS: LOWER CHEST: The visualized lung bases are clear. There is no pleural effusion. CARDIOVASCULATURE: The heart is normal in size. There is no pericardial effusion. LIVER: The liver is normal in size and contour. No liver mass is identified. The hepatic and portal veins are patent. GALLBLADDER / BILE DUCTS: There is a tiny calculus in the gallbladder. A 2.5 cm cystic structure projects in the region of the gallbladder neck which is of lower density than the contents of the gallbladder. There is no intra or extrahepatic biliary ductal dilatation. SPLEEN: The spleen is normal in size. No focal splenic lesion is identified. PANCREAS: The pancreas is unremarkable in appearance. ADRENAL GLANDS: Within normal limits. KIDNEYS/RETROPERITONEUM: No renal calculi are identified. There is no hydronephrosis. There is a 1.6 cm left renal cyst. LYMPH NODES: No abdominal or pelvic lymphadenopathy. VASCULATURE: The abdominal aorta is normal in caliber. MESENTERY/PERITONEUM: No free fluid. No masses. There is no free intraperitoneal gas. STOMACH: The stomach is collapsed, limiting evaluation. SMALL BOWEL: The small bowel is normal in caliber. COLON: There is a large amount of stool throughout the colon. There is diverticulosis of the descending and sigmoid colon, without evidence of diverticulitis. APPENDIX: Normal. URINARY BLADDER/PELVIC ORGANS: The urinary bladder is unremarkable. The prostate is normal in size. BONES / SOFT TISSUES: No suspicious bony or soft tissue abnormalities. CT/CT abdomen pelvis w IV con IMPRESSION: 1. Cholelithiasis. 2.5 cm cystic structure projecting in the region of the gallbladder neck which is of lower density than the remainder of the gallbladder. This is of uncertain etiology. Ultrasound of the gallbladder is suggested for further evaluation. 2. Large amount of stool throughout the colon. Diverticulosis of the descending and sigmoid colon, without evidence of diverticulitis. Electronically signed by: Armen Stiles MD 09/29/2024 11:35 AM EDT
[2024-09-29 05:52] VITALS: BP 111/78; PULSE 95; RESP 16; TEMP 36.7; O2SAT 96; BMI 32.1
[2024-09-29 09:00] LABS: MANUAL DIFF FLAG NO
[2024-09-29 09:04] LABS: Appearance Urine Cloudy; Color Urine Yellow; Glucose Urine UA Negative (Negative); Leukocyte Esterase Urine Negative (Negative); Nitrite Urine Negative (Negative); Specific Gravity - Urine 1.025 (1.005-1.025); Urine Blood Negative (Negative); Urine Ketones Trace mg/dL (Negative); Urine Protein Negative (Neg-Trace)
[2024-09-29 09:05] LABS: Basophils Percent Auto 0.3 % (0-2); Eosinophils Absolute Auto 0.3 X10*3/uL (0.0-0.4); Eosinophils Percent Auto 2.5 % (0-4); Hematocrit 44.5 % (42.0-52.0); Hemoglobin 15.1 g/dl (14.0-18.0); Imm Gran Abs Auto 0.05 X10*3/uL (0.00-0.03); Imm Gran Pct Auto 0.4 % (0.0-0.4); Lymphocytes Absolute Auto 1.9 X10*3/uL (1.2-4.9); Mean Corpuscular HGB Conc 33.9 g/dl (31.0-36.0); Mean Corpuscular Hemoglobin 31.2 pg (27.0-33.0); Mean Corpuscular Volume 91.9 fL (80.0-98.0); Mean Platelet Volume 9.6 fL (9.4-12.4); Monocytes Absolute Auto 0.9 X10*3/uL (0.1-1.2); Monocytes Percent Auto 7.1 % (2-11); Neutrophils Absolute Auto 9.6 x10*3/uL (2.0-8.3); Neutrophils Percent Auto 74.7 % (45-73); Platelet Count 229 X10*3/uL (160-400); Red Blood Count 4.84 X10*6/uL (4.60-5.80); Red Cell Distribution Width 12.6 % (11.0-16.0); White Blood Count 12.8 X10*3/uL (4.8-10.8)
[2024-09-29 09:14] VITALS: BP 121/70; PULSE 69; RESP 18; TEMP 36.7; O2SAT 98
--- NOTE | 2024-09-29 09:16 | ED.ABDPAIN ---
HPI - Abdominal Pain General Chief Complaint: Abdominal Pain Stated Complaint: abdominal pain Time Seen by Provider: 09/29/24 09:15 Source: patient Mode of arrival: ambulatory Limitations: no limitations History of Present Illness ED Provider: CLAIRE ALFORD PA-C HPI narrative: 48 year old male with pmhx significant for BPH with urinary obstruction and HTN presents to the ED today for evaluation of epigastric abdominal pain that began around 2200 last night. Reports normal bowel movement at 2100. Upon laying down in bed, began to have intermittent abdominal cramping in the upper abdomen that kept him up all night. Reports associated chills, nausea without vomiting, and dizziness. He attempted to take a hot shower without relief. He denies any abnormal foods. No known sick contacts. Admits to daily marijuana use. Denies regular etoh consumption however admits to consuming a large amount of etoh on Sunday (3 days ago). Denies hx of etoh abuse or withdrawal. Denies any hx of abdominal surgeries. Admits to hx of renal stones however states this does not feel similar. Denies fever, vomiting, rashes, flank pain, dysuria, hematuria. Related Data Previous Rx's ?Medication ?Instructions ?Recorded cholecalciferol (vitamin D3) 25 25 mcg PO DAILY 90 days #90 caps 02/13/23 mcg (1,000 unit) capsule bisacodyl 5 mg tablet,delayed 20 mg (4 x 5 mg) PO ONCE 1 day #4 06/18/24 release (Dulcolax (bisacodyl)) tabs polyethylene glycol 3350 17 238 g PO ONCE #238 grams 06/18/24 gram/dose oral powder (Miralax) tamsulosin 0.4 mg capsule (Flomax) 0.4 mg PO DAILY #90 caps 09/25/24 Allergies Allergy/AdvReac Type Severity Reaction Status Date / Time sulfamethoxazole Allergy Mild SEVERE Verified 09/29/24 05:56 [From Bactrim] ITCHINESS trimethoprim [From Bactrim] Allergy Mild SEVERE Verified 09/29/24 05:56 ITCHINESS clindamycin [Clindamycin] Allergy Unknown RASH Verified 09/29/24 05:56 Sulfa (Sulfonamide Allergy Unknown breathing Verified 09/29/24 05:56 Antibiotics) Clindamycin HCl Allergy Unknown Wheezing Uncoded 09/29/24 05:56 From KEFLEX Allergy Unknown RASH Uncoded 09/29/24 05:56 Review of Systems Review of Systems Constitutional: No fever, chills, fatigue, night sweats, weight changes ENT/Mouth: No ear pain, hearing loss, nasal congestion, sinus pain, rhinorrhea, sore throat Eyes: No eye pain, swelling, redness, vision changes, discharge Cardio: No chest pain, palpitations, SAMANO, orthopnea, peripheral edema Pulm: No SOB, cough, sputum, wheezing, dyspnea, hemoptysis GI: No vomiting, hematemesis, diarrhea, constipation, hematochezia, melena, +abdominal pain, +nausea : No irregular bleeding, dysuria, frequency, urgency, hesitancy, hematuria, flank pain, urinary flow changes, urinary incontinence or retention MSK: No back pain, neck pain, joint pain, myalgias Skin: No lesions, rashes Neuro: No weakness, numbness, paresthesias, LOC, dizziness, headache Psych: No anxiety/panic, depression, SI/HI, AH/VH All other systems reviewed and are negative. [facility] Past Medical History Attestation statement: The following information was validated with the patient. Source: old records reviewed and nursing notes reviewed Social History Social History Housing: Apartment Patient Tobacco Use Status: Never used Tobacco e-Cigarette/Vaping Use: Never Used Advance Directives: No Advance Directives Information Provided: Yes Do you have a plan to hurt others: No Plan service: No Current occupational status: employed Cognitive needs: No Hearing needs: No Vision needs: No Physical Exam ED Vital Signs: Vital Signs - 24 hr 09/29/24 05:52 09/29/24 09:14 09/29/24 11:17 Temperature 98.1 F 98.0 F Pulse Rate 95 69 58 Respiratory Rate 16 18 16 Blood Pressure 111/78 121/70 110/62 Pulse Oximetry 96 98 98 Oxygen Delivery Method Room Air Room Air Room Air BMI result Body Mass Index 32.1 Vital signs are stable, afebrile General: Appears uncomfortable in position on exam bed Skin: Warm, dry, intact. No rashes or lesions. Head: Normocephalic, atraumatic. EENT: Hearing is intact b/l. Conjunctiva clear. Sclera is anicteric. PERRLA. EOM intact. Moist mucous membranes.? Neck: Supple without LAD. Cardiac: Chest wall symmetric. RRR. Lungs: Normal respiratory effort without accessory muscle use. CTA bilaterally. Abdomen: Soft, nondistended, tender to palpation of the entire upper abdomen. No rebound or guarding. Normoactive bowel sounds x4. Negative Browne's sign. Negative Rovsing sign. No McBurney point tenderness. No CVAT. Back: No midline spinous or paraspinal tenderness. No step off deformity. Ext: Upper and lower extremities atraumatic, without tenderness, deformity, swelling or erythema Neuro: AOx3. Normal speech. Ambulating with steady gait. Course Course Course Narrative: 1026 -- CBC shows a slight white count to 12.8 without left shift. No anemia. H&H stable. Chemistry without acute electrolyte abnormality requiring intervention. No NIKA. Liver function at baseline. Lipase WNL. Negative COVID, flu, RSV. Urine without infection. > medicated with Zofran for nausea. Toradol given for pain control. Receiving IV fluids. > CT a/p pending 1256 -- CT a/p shows a tiny calculus in the gallbladder and a 2.5 cm cystic structure projecting within the region of the gallbladder neck which is lower density than the contents of the gallbladder itself. No intra or extrahepatic biliary ductal dilation. Pancreas is normal. There is a 1.6 cm left renal cyst. No renal calculi or hydronephrosis. There is a large amount of stool throughout the colon without evidence of obstruction. There is diverticulosis of the descending and sigmoid colon without evidence of diverticulitis. Normal appendix. > follow up ultrasound was ordered with patient's consent. Ultrasound shows 2.5 cm cholesterol stone impacted in the neck of the gallbladder correlating with CT findings. In addition, the gallbladder is filled with low-level internal echoes possibly such versus infection. Findings are highly suggestive of acute cholecystitis. There is no biliary ductal dilation. Other incidental findings of mild hepatomegaly suggesting steatosis. > discussed findings with both patient and General surgery, Dr. Perez. Dr. Perez will be down to evaluate patient at bedside. In the meantime, will obtain blood cultures and start patient on zosyn. He does not meet sepsis criteria. He has received IVF, zofran and toradol with good effect. lying comfortably on the exam bed. 0890 -- Dr. Perez at bedside. After evaluation further discussion, patient has opted to proceed with cholecystectomy. Dr. Perez will admit patient with plan for procedure tomorrow. He will be placing admission orders. Medical Decision Making Medical Decision Making [facility] Narrative: 48 year old male with pmhx significant for BPH with urinary obstruction and HTN presents to the ED today for evaluation of epigastric abdominal pain that began around 2200 last night. Vital signs stable. he is nontoxic and in NAD. he is uncomfortable appearing, lying in th position on exam bed. His abdomen is soft, ND, ttp of entire upper abdomen without rebound or guarding. Normoactive bowel sounds x4. Negative Rovsing sign. No McBurney point tenderness. Negative Browne's sign. No CVAT. Differential diagnosis includes anemia, electrolyte abnormality, gastroenteritis, gastritis, pancreatitis, PUD, dehydration. Lower suspicion for biliary colic, renal colic, nephrolithiasis, UTI. Abdominal exam without peritoneal signs. No evidence of acute abdomen at this time. Well appearing. Moderate suspicion for acute hepatobiliary disease (including acute cholecystitis). Less likely to represent perforated ulcer/ GI bleed, acute infectious processes (pneumonia, hepatitis, pyelonephritis), atypical appendicitis, vascular catastrophe, bowel obstruction or viscus perforation. Presentation not consistent with other acute, emergent causes of abdominal pain at this time. Plan: cbc/bmp, urine, and viral swabs ordered from triage. Will add on liver panel, lipase, pain control/ IV fluids/ antiemetics, and CT a/p for further evaluation. Differential Diagnosis Differential Diagnoses: The differential diagnosis associated with the presentation includes as above. Admission/Observation Consideration of admission/observation: Escalation of care including admission/observation considered Consult Healthcare Provider Management of the patient was discussed with: Vp Ancillary (general surgery - dr. perez) Lab Data [facility] Lab Attestation statement: I reviewed the patient's lab results. as above. 09/29/24 08:55 09/29/24 08:55 Labs: Lab Results 09/29/24 09/29/24 Range/Units 08:55 09:36 WBC 12.8 H (4.8-10.8) X10*3/uL RBC 4.84 (4.60-5.80) X10*6/uL Hgb 15.1 (14.0-18.0) g/dl Hct 44.5 (42.0-52.0) % MCV 91.9 (80.0-98.0) fL MCH 31.2 (27.0-33.0) pg MCHC 33.9 (31.0-36.0) g/dl RDW 12.6 (11.0-16.0) % Plt Count 229 (160-400) X10*3/uL MPV 9.6 (9.4-12.4) fL Immature Gran % (Auto) 0.4 (0.0-0.4) % Neut % (Auto) 74.7 H (45-73) % Lymph % (Auto) 15.0 L (20-40) % [place] % (Auto) 7.1 (2-11) % Eos % (Auto) 2.5 (0-4) % Baso % (Auto) 0.3 (0-2) % Lymph # (Auto) 1.9 (1.2-4.9) X10*3/uL [place] # (Auto) 0.9 (0.1-1.2) X10*3/uL Eos # (Auto) 0.3 (0.0-0.4) X10*3/uL Baso # (Auto) 0.0 (0.0-0.2) X10*3/uL Abs Immat Gran (auto) 0.05 H (0.00-0.03) X10*3/uL Absolute Neuts (auto) 9.6 H (2.0-8.3) x10*3/uL Absolute Nucleated RBC 0.000 (0.0-0.012) X10*3/uL Nucleated RBC % (auto) 0.0 (0.0-0.2) /100WBC Sodium 142 (135-145) mmol/L Potassium 4.5 (3.3-5.1) mmol/L Chloride 112 H (96-108) mmol/L Carbon Dioxide 23 (22-29) mmol/L Anion Gap 12 (12-20) BUN 15 (9-16) mg/dL Creatinine 0.90 (0.5-1.4) mg/dL Estim Creat Clear Calc 116.1 Estimated GFR > 60 Random Glucose 100 (60-115) mg/dL Calcium 9.0 (8.4-10.2) mg/dL Total Bilirubin 0.3 (0.0-1.0) mg/dL Direct Bilirubin 0.1 (0.0-0.5) mg/dL AST 19 (5-37) U/L ALT 27 (0-40) U/L Alkaline Phosphatase 52 (39-117) U/L Total Protein 6.4 L (6.5-8.0) g/dL Albumin 4.2 (3.5-5.0) g/dL Lipase 53 (8-78) U/L Urine Color Yellow Urine Appearance Cloudy Urine pH 7.0 (5.0-9.0) Ur Specific [place] 1.025 (1.005-1.025) Urine Protein Negative (Neg-Trace) mg/dL Urine Glucose (UA) Negative (Negative) mg/dL Urine Ketones Trace (Negative) mg/dL Urine Blood Negative (Negative) Urine Nitrite Negative (Negative) Ur Leukocyte Esterase Negative (Negative) Influenza Type A (PCR) NEGATIVE (Negative) Influenza Type B (PCR) NEGATIVE (Negative) RSV RNA Qual (PCR) NEGATIVE (Negative) SARS-CoV-2 RNA (RT-PCR) NEGATIVE (Negative) Independent Interpretation I performed an independent interpretation of an: CT Scan Interpretation: CT a/p without bowel obstruction. shows cholelithiasis. Radiology Impression Discussion of test interpretation with radiology: I have reviewed the radiologist's reading. Radiologist Impression: Procedure(s): US abdomen limited Accession Number(s): [id number] cc: Jc Kaiser MD; Claire Alford~ EXAMINATION: US ABDOMEN LIMITED CLINICAL INFORMATION: Right upper quadrant/epigastric pain. Nausea and vomiting. Gallbladder cyst abnormality on CT exam. COMPARISON: Correlation made with CT abdomen and pelvis 09/29/2024. TECHNIQUE: Real-time limited imaging of the right upper quadrant abdominal viscera. FINDINGS: PANCREAS: Visualized portions are unremarkable. LIVER: Liver is mildly enlarged, with right hepatic lobe measuring 17.1 cm. The liver contour is normal. Mildly diffusely increased hepatic echogenicity is suggestive of steatosis. No suspicious focal lesion. There is no intrahepatic biliary duct dilatation seen. GALLBLADDER: There is a 2.5 x 2.2 cm gallstone impacted within the gallbladder neck. The gallbladder is mildly distended and filled with low-level internal echoes, possibly sludge versus infection. No gross wall bladder wall thickening or pericholecystic fluid. Negative sonographic Browne's sign although per technologist note, patient has been medicated. COMMON BILE DUCT: Normal in caliber measuring 0.5 cm in diameter. FREE FLUID: None. US/US abdomen limited IMPRESSION: 1. There is a 2.5 cm cholesterol stone impacted in the neck of the gallbladder, correlating with the abnormality seen on CT exam. In addition, the gallbladder is filled with low level internal echoes, possibly sludge versus infection. Findings are highly suspect for acute cholecystitis. 2. Mild hepatomegaly with mildly increased hepatic echogenicity suggesting steatosis. 3. No biliary ductal dilatation. Electronically signed by: Evin Houser MD 09/29/2024 12:39 PM EDT RP Procedure(s): CT abdomen pelvis w IV con Accession Number(s): [id number] cc: Jc Kaiser MD; Claire Alford~ Report Number: [id number]: Total DLP = 564.00 mGy-cm EXAMINATION: CT ABDOMEN PELVIS WITH IV CONTRAST HISTORY: white count, epigastric pain, cramping, nausea COMPARISON: Comparison is made with the prior examination dated 12/15/2018. TECHNIQUE: CT scan of the abdomen and pelvis was performed following administration of 85 mL Omnipaque 350 using standard departmental protocol. Coronal and sagittal reformatted images were generated and reviewed. Oral contrast material was not administered at the request of the referring physician. This CT exam was performed with one or more of the following dose reduction techniques: automated exposure control, adjustment of the mA and/or kV according to patient size, use of iterative reconstruction technique. DLP: 564 mGy-cm FINDINGS: LOWER CHEST: The visualized lung bases are clear. There is no pleural effusion. CARDIOVASCULATURE: The heart is normal in size. There is no pericardial effusion. LIVER: The liver is normal in size and contour. No liver mass is identified. The hepatic and portal veins are patent. GALLBLADDER / BILE DUCTS: There is a tiny calculus in the gallbladder. A 2.5 cm cystic structure projects in the region of the gallbladder neck which is of lower density than the contents of the gallbladder. There is no intra or extrahepatic biliary ductal dilatation. SPLEEN: The spleen is normal in size. No focal splenic lesion is identified. PANCREAS: The pancreas is unremarkable in appearance. ADRENAL GLANDS: Within normal limits. KIDNEYS/RETROPERITONEUM: No renal calculi are identified. There is no hydronephrosis. There is a 1.6 cm left renal cyst. LYMPH NODES: No abdominal or pelvic lymphadenopathy. VASCULATURE: The abdominal aorta is normal in caliber. MESENTERY/PERITONEUM: No free fluid. No masses. There is no free intraperitoneal gas. STOMACH: The stomach is collapsed, limiting evaluation. SMALL BOWEL: The small bowel is normal in caliber. COLON: There is a large amount of stool throughout the colon. There is diverticulosis of the descending and sigmoid colon, without evidence of diverticulitis. APPENDIX: Normal. URINARY BLADDER/PELVIC ORGANS: The urinary bladder is unremarkable. The prostate is normal in size. BONES / SOFT TISSUES: No suspicious bony or soft tissue abnormalities. CT/CT abdomen pelvis w IV con IMPRESSION: 1. Cholelithiasis. 2.5 cm cystic structure projecting in the region of the gallbladder neck which is of lower density than the remainder of the gallbladder. This is of uncertain etiology. Ultrasound of the gallbladder is suggested for further evaluation. 2. Large amount of stool throughout the colon. Diverticulosis of the descending and sigmoid colon, without evidence of diverticulitis. Electronically signed by: Armen Stiles MD 09/29/2024 11:35 AM EDT External Record Review External record reviewed: Inpatient record Prescription Management I considered prescription management with: Pain Medication, Antibiotic and Other (zofran) Social Determinants Patient?s care significantly limited by Social Determinants of Health including: Other Social Determinant of Health Medications Administered Discontinued Medications Generic Name Dose Route Start Last Admin Trade Name Freq PRN Reason Stop Dose Admin Sodium Chloride 1,000 mls @ 999 mls/hr 09/29/24 09:45 09/29/24 11:45 Ns IV 09/29/24 10:45 Infused .Q1H1M DANII Infusion Piperacillin Sod/Tazobactam 50 mls @ 100 mls/hr 09/29/24 12:59 09/29/24 13:46 Sod 3.375 gm/ Sodium Chloride IV 09/29/24 13:28 100 mls/hr ONCE ONE Administration Iohexol 100 ml 09/29/24 10:58 09/29/24 10:58 Iohexol 350 Mg/Ml 100 Ml Infus..Btl IV 09/29/24 10:59 85 ml ONCE ONE Administration Ketorolac Tromethamine 15 mg 09/29/24 09:45 09/29/24 10:43 Ketorolac Tromethamine 15 Mg/Ml Vial IVPUSH 09/29/24 09:46 15 mg ONCE ONE Administration Critical Care Time Critical Care Time Critical Care Time: No Discharge Plan Discharge Clinical Impression: Acute cholecystitis, Constipation Patient Disposition: Admitted As Inpatient
[2024-09-29 09:26] LABS: Anion Gap 12 (12-20); Blood Urea Nitrogen 15 mg/dL (9-16); Carbon Dioxide 23 mmol/L (22-29); Chloride 112 mmol/L (96-108); Creatinine Clr Calc Pharmacy 116.1; Estimated Glomerular Filt Rate > 60; Glucose Random 100 mg/dL (60-115); Potassium 4.5 mmol/L (3.3-5.1); Sodium 142 mmol/L (135-145)
[2024-09-29 09:49] LABS: Influenza A PCR NEGATIVE (Negative); Influenza B PCR NEGATIVE (Negative); Resp Syncy Virus RNA Qual PCR NEGATIVE (Negative); SARS COV2 PCR INHOUSE NEGATIVE (Negative)
[2024-09-29 10:12] LABS: Albumin Level 4.2 g/dL (3.5-5.0); Alkaline Phosphatase 52 U/L (39-117); Aspartate Amino Transferase 19 U/L (5-37); Bilirubin Direct 0.1 mg/dL (0.0-0.5); Bilirubin Total 0.3 mg/dL (0.0-1.0); Lipase 53 U/L (8-78); Total Protein 6.4 g/dL (6.5-8.0)
[2024-09-29 10:27] LABS: Alanine Aminotransferase 27 U/L (0-40)
[2024-09-29] MEDS: Ketorolac Tromethamine 15 MG/ML VIAL IVPUSH (10:43)
[2024-09-29] MEDS: 0.9 % Sodium Chloride 1,000 ML 999 ML IV (10:44)
[2024-09-29] MEDS: iohexoL 350 MG/ML 100 ML INFUS..BTL IV (10:58)
[2024-09-29 11:17] VITALS: BP 110/62; PULSE 58; RESP 16; O2SAT 98
[2024-09-29] MEDS: Piperacillin Sodium/Tazobactam 3.375 GM in 0.9 % Sodium Chloride 50 ML IV ×2 (13:46→19:03)
--- NOTE | 2024-09-29 14:38 | P.HPGS_ITS ---
History of Present Illness History of Present Illness Date of Service: 10/01/24 Chief complaint: Cholecystitis Narrative: Sanford Bower is a 48 year old male here because of upper abdominal pain last night. He says this started around 930 at night. He says this was ?severe?. This persisted throughout the night so he came to the emergency room this morning He says the pain has actually subsided significantly. He denies any nausea or vomiting. He has never had any similar episodes in the past. He says he has no significant medical problems except for BPH. He denies any fever or chills. Review of Systems Constitutional: Constitutional: Denies chills and Denies fever(s) Cardiovascular: Cardiovascular: Denies chest pain, Denies dyspnea and Denies dyspnea on exertion Respiratory: Respiratory: Denies cough, Denies dyspnea and Denies dyspnea on exertion Gastrointestinal: Gastrointestinal: Denies hematochezia and Denies change in bowel habits Genitourinary: Genitourinary: Denies hematuria and Denies difficulty urinating Musculoskeletal: Musculoskeletal: Denies back pain and Denies limited range of motion Neurologic: Denies focal weakness and Denies convulsions Psychiatric: Psychiatric: Denies depression and Denies mood swings [facility] Surgical History Surgical History (Updated 10/01/24 @ 13:27 by Radha Medellin RN) History of back surgery Hx of rotator cuff surgery Social History Social History Household Members: Spouse and Children Housing: Apartment Do you presently have visiting nurse or other home services: No Patient Tobacco Use Status: Never used Tobacco e-Cigarette/Vaping Use: Never Used Substance Use Type: Marijuana service: No Current occupational status: employed Cognitive needs: No Hearing needs: No Vision needs: No Meds Allergies Allergy/AdvReac Type Severity Reaction Status Date / Time sulfamethoxazole Allergy Mild SEVERE Verified 09/29/24 05:56 [From Bactrim] ITCHINESS trimethoprim [From Bactrim] Allergy Mild SEVERE Verified 09/29/24 05:56 ITCHINESS clindamycin [Clindamycin] Allergy Unknown RASH Verified 09/29/24 05:56 Sulfa (Sulfonamide Allergy Unknown breathing Verified 09/29/24 05:56 Antibiotics) Clindamycin HCl Allergy Unknown Wheezing Uncoded 09/29/24 05:56 From KEFLEX Allergy Unknown RASH Uncoded 09/29/24 05:56 Physical Exam Vital Signs: Vital Signs: Last Vital Signs Temp 98.0 F 09/29/24 09:14 Pulse 58 09/29/24 11:17 Resp 16 09/29/24 11:17 BP 110/62 09/29/24 11:17 Pulse Ox 98 09/29/24 11:17 O2 Del Method Room Air 09/29/24 11:17 BMI result Body Mass Index 32.1 GI: Other: Minimal tenderness on the upper abdomen, currently no Browne's sign Results Results Labs: Short CBC 09/29/24 Range/Units 08:55 WBC 12.8 H (4.8-10.8) X10*3/uL Hgb 15.1 (14.0-18.0) g/dl Hct 44.5 (42.0-52.0) % Plt Count 229 (160-400) X10*3/uL BMP 09/29/24 08:55 Sodium 142 Potassium 4.5 Chloride 112 H Carbon Dioxide 23 BUN 15 Creatinine 0.90 Calcium 9.0 Liver Function 09/29/24 Range/Units 09:36 Total Bilirubin 0.3 (0.0-1.0) mg/dL Direct Bilirubin 0.1 (0.0-0.5) mg/dL AST 19 (5-37) U/L ALT 27 (0-40) U/L Alkaline Phosphatase 52 (39-117) U/L Albumin 4.2 (3.5-5.0) g/dL Urine 09/29/24 Range/Units 08:55 Urine Color Yellow Urine Appearance Cloudy Urine pH 7.0 (5.0-9.0) Ur Specific [place] 1.025 (1.005-1.025) Urine Protein Negative (Neg-Trace) mg/dL Urine Glucose (UA) Negative (Negative) mg/dL Assessment and Plan (1) Acute cholecystitis: Status: Acute He describes severe abdominal pain on the upper abdomen last night persisting until very early this morning. He is much improved now However, his ultrasound and CT scan suggest a gallstone impacted in the neck of the gallbladder with possible cholecystitis. I therefore explained to the patient the option of proceeding with cholecystectomy. I discussed the technique of laparoscopic cholecystectomy and possible open cholecystectomy. I reviewed the risks including but not limited to bleeding, infections, injury to other organs including bowel, liver and bile ducts, bile leak, retained stones, as well as the benefits and alternatives. He says that his pain overnight was severe so he wants to proceed with cholecystectomy at this time. I will therefore admit him and plan to do the procedure tomorrow. Quality Stroke Does the patient have a stroke diagnosis?: No VTE Prior VTE?: No VTE Risk Level:: Medical - moderate - high VTE Device Contraindication: N/A - Device Ordered VTE Drug Contraindication: N/A - Med Ordered Procedures Date of Service Date of Service: 10/01/24
[2024-09-29 14:42] VITALS: BP 132/78; PULSE 76; RESP 14; O2SAT 98
--- NOTE | 2024-09-29 14:46 | PC.NURSE ---
Plan for admission, per .
--- NOTE | 2024-09-29 16:26 | PHA.MEDREC ---
Addendum entered by Berny Ruiz 09/29/24 16:27: reviewed Original Note: Pharmacy Consult ? Medication Reconciliation Pharmacy has completed the medication reconciliation. Spoke with patient to confirm. He reports he did not take medications today.
[2024-09-29] MEDS: Lactated Ringers 1,000 ML 80 ML IVCONT (17:13)
[2024-09-29] MEDS: 0.9 % Sodium Chloride Flush 3 ML SYRINGE IVFLUSH (17:13)
[2024-09-29 18:41] VITALS: BP 128/82; PULSE 71; RESP 17; TEMP 36.7; O2SAT 98
[2024-09-29 23:51] VITALS: BP 116/68; PULSE 52; RESP 14; TEMP 37; O2SAT 97
[2024-09-30] VITALS (7 sets, daily range): BP systolic 122–139; BP diastolic 72–79; PULSE 60–72; RESP 14–20; TEMP 36.3–36.7; O2SAT 97; BMI 32.1
[2024-09-30] MEDS: Piperacillin Sodium/Tazobactam 3.375 GM in 0.9 % Sodium Chloride 50 ML IV ×4 (02:27→19:04)
[2024-09-30] MEDS: Lactated Ringers 1,000 ML 80 ML IVCONT ×2 (06:31→17:29)
[2024-09-30 07:26] LABS: MANUAL DIFF FLAG NO
[2024-09-30 07:31] LABS: Basophils Percent Auto 0.6 % (0-2); Eosinophils Absolute Auto 0.2 X10*3/uL (0.0-0.4); Eosinophils Percent Auto 3.3 % (0-4); Hematocrit 42.3 % (42.0-52.0); Hemoglobin 14.1 g/dl (14.0-18.0); Imm Gran Abs Auto 0.02 X10*3/uL (0.00-0.03); Imm Gran Pct Auto 0.3 % (0.0-0.4); Lymphocytes Percent Auto 29.7 % (20-40); Mean Corpuscular HGB Conc 33.3 g/dl (31.0-36.0); Mean Corpuscular Hemoglobin 30.9 pg (27.0-33.0); Mean Corpuscular Volume 92.6 fL (80.0-98.0); Mean Platelet Volume 9.8 fL (9.4-12.4); Monocytes Absolute Auto 0.6 X10*3/uL (0.1-1.2); Neutrophils Percent Auto 58.1 % (45-73); Platelet Count 194 X10*3/uL (160-400); Red Blood Count 4.57 X10*6/uL (4.60-5.80); Red Cell Distribution Width 12.7 % (11.0-16.0); White Blood Count 6.9 X10*3/uL (4.8-10.8)
[2024-09-30 07:53] LABS: Alanine Aminotransferase 22 U/L (0-40); Albumin Level 3.8 g/dL (3.5-5.0); Alkaline Phosphatase 49 U/L (39-117); Anion Gap 9 (12-20); Aspartate Amino Transferase 20 U/L (5-37); Bilirubin Total 0.8 mg/dL (0.0-1.0); Blood Urea Nitrogen 13 mg/dL (9-16); Calcium 8.6 mg/dL (8.4-10.2); Carbon Dioxide 24 mmol/L (22-29); Chloride 112 mmol/L (96-108); Creatinine Clr Calc Pharmacy 111.2; Estimated Glomerular Filt Rate > 60; Glucose Random 89 mg/dL (60-115); Potassium 4.1 mmol/L (3.3-5.1); Sodium 141 mmol/L (135-145); Total Protein 5.7 g/dL (6.5-8.0)
[2024-09-30] MEDS: Tamsulosin HCL 0.4 MG CAPSULE PO (07:56)
--- NOTE | 2024-09-30 08:08 | PC.NURSE ---
Reports feeling fine up to BR with steay gait. No nausea/abd pain. Moist mm. Aware of plan for hopeful CHoleycystectomy today and aware of NPO status.
--- NOTE | 2024-09-30 09:34 | P.PNGS_ITS ---
Subjective Subjective Date of Service: 10/01/24 Interval history: Feels well Hungry Says he does not have any pain currently No events overnight Physical Exam 2 Vital Signs: Vital Signs: Last Vital Signs Temp 97.7 F 09/30/24 08:28 Pulse 60 09/30/24 08:28 Resp 14 09/30/24 08:28 BP 134/76 09/30/24 08:28 Pulse Ox 97 09/30/24 08:28 O2 Del Method Room Air 09/30/24 08:28 BMI result Body Mass Index 32.1 Const: General: comfortable and no acute distress Resp: Effort & Inspection: normal respiratory effort Cardio: Rate: regular rate GI: Other: No Browne's sign currently Palpation (GI): Soft to palpation, not firm, nontender and no guarding Objective Data Active Medications Acetaminophen (Acetaminophen 325 Mg Tablet) 650 mg PO Q6H PRN PRN Reason: Pain, Mild 1-3,fever,headache Calcium Carbonate (Calcium Carbonate 750 Mg Tab.Chew) 750 mg PO Q4H PRN PRN Reason: Heartburn Heparin Sodium (Porcine) (Heparin Sodium,Porcine 5,000 Unit/Ml Vial) 5,000 unit SUBCUT Q8H [facility] Lactated Ringer's (Lr) 1,000 mls @ 80 mls/hr IVCONT .[id number] [facility] Last Admin: 09/30/24 06:31 Dose: 80 mls/hr Documented By: LV Piperacillin Sod/Tazobactam (Sod 3.375 gm/ Sodium Chloride) 50 mls @ 100 mls/hr IV Q6H [facility] Last Infusion: 09/30/24 08:38 Dose: Infused Documented By: JODI Melatonin (Melatonin 3 Mg Tablet) 6 mg PO BEDTIME PRN PRN Reason: Insomnia Morphine Sulfate (Morphine Sulfate 4 Mg/Ml Cartridge) 2 mg IVPUSH Q4H PRN; Protocol PRN Reason: Pain, Severe (Pain Scale 7-10) Ondansetron HCl (Ondansetron Hcl 4 Mg/2 Ml Vial) 4 mg IVPUSH Q6H PRN PRN Reason: nausea Sodium Chloride (0.9 % Sodium Chloride Flush 3 Ml Syringe) 3 ml IVFLUSH QSHIFT [facility] Last Admin: 09/30/24 08:37 Dose: Not Given Documented By: JODI Non-Admin Reason: Med Not Available Tamsulosin HCl (Tamsulosin Hcl 0.4 Mg Capsule) 0.4 mg PO DAILY [facility] Last Admin: 09/30/24 07:56 Dose: 0.4 mg Documented By: JODI Labs 09/30/24 07:19 09/30/24 07:19 Labs: Laboratory Results - last 24 hr 09/29/24 09/29/24 09/30/24 08:55 09:36 07:19 MCV 92.6 MCH 30.9 MCHC 33.3 RDW 12.7 Plt Count 194 MPV 9.8 Immature Gran % (Auto) 0.3 Neut % (Auto) 58.1 Lymph % (Auto) 29.7 [place] % (Auto) 8.0 Eos % (Auto) 3.3 Baso % (Auto) 0.6 Lymph # (Auto) 2.0 [place] # (Auto) 0.6 Eos # (Auto) 0.2 Baso # (Auto) 0.0 Abs Immat Gran (auto) 0.02 Absolute Neuts (auto) 4.0 Absolute Nucleated RBC 0.000 Nucleated RBC % (auto) 0.0 Anion Gap 9 L Estim Creat Clear Calc 111.2 Estimated GFR > 60 Random Glucose 89 Calcium 8.6 Total Bilirubin 0.3 0.8 Direct Bilirubin 0.1 AST 19 20 ALT 27 22 Alkaline Phosphatase 52 49 Total Protein 6.4 L 5.7 L Albumin 4.2 3.8 Lipase 53 Influenza Type A (PCR) NEGATIVE Influenza Type B (PCR) NEGATIVE RSV RNA Qual (PCR) NEGATIVE SARS-CoV-2 RNA (RT-PCR) NEGATIVE Procedures Date of Service Date of Service: 10/01/24 Progress Note: A&P Assessment and plan (1) Acute cholecystitis: Status: Acute Assessment and Plan: Symptoms seems resolved WBC down He had preferred to undergo cholecystectomy inpatient However, I am unable to him on OR time for today We will give him regular diet for now and see if we can schedule him for tomorrow Looks well otherwise and says he is comfortable Time Spent With Patient Time: Total time managing care of this patient today ____ minutes. Quality Stroke Does the patient have a stroke diagnosis?: No VTE Prior VTE?: No VTE Risk Level:: Medical - moderate - high VTE Device Contraindication: N/A - Device Ordered VTE Drug Contraindication: N/A - Med Ordered
--- NOTE | 2024-09-30 14:19 | PM.EVENT ---
Event Note Date of Service: 09/30/24 Event Note: Continues to feel says he continues to feel better Abdomen is soft and benign Looks well No fever He does state that he prefers to have the procedure done before he gets discharged because of the severe pain that he had on presentation The OR could not accommodate the procedure today so I was able to find a spot for him for tomorrow afternoon He is aware Time Spent With Patient Time: Total time managing care of this patient today ____ minutes.
--- NOTE | 2024-09-30 15:05 | MHC.CM.PN ---
pt lives w/family is working will not need service when dcd dc plan home n/s
[2024-09-30] MEDS: Heparin Sodium,Porcine 5,000 UNIT/ML VIAL 5000 UNIT SUBCUT (17:30)
[2024-09-30] MEDS: 0.9 % Sodium Chloride Flush 3 ML SYRINGE IVFLUSH (19:11)
[2024-10-01] VITALS (13 sets, daily range): BP systolic 114–168; BP diastolic 63–94; PULSE 56–104; RESP 15–18; TEMP 36.1–37.2; O2SAT 96–99
[2024-10-01] MEDS: Piperacillin Sodium/Tazobactam 3.375 GM in 0.9 % Sodium Chloride 50 ML IV ×4 (01:01→19:12)
[2024-10-01] MEDS: Lactated Ringers 1,000 ML 80 ML IVCONT (06:21)
[2024-10-01] MEDS: Tamsulosin HCL 0.4 MG CAPSULE PO (07:19)
--- NOTE | 2024-10-01 08:42 | PM.PNGS ---
Subjective Subjective Date of Service: 10/01/24 Interval history: Says he had a good night Denies significant pain No nausea or vomiting No fever Physical Exam Vital Signs: Vital Signs: Last Vital Signs Temp 97.2 F 10/01/24 07:29 Pulse 86 10/01/24 07:29 Resp 16 10/01/24 07:29 BP 168/77 H 10/01/24 07:29 Pulse Ox 96 10/01/24 07:29 O2 Del Method Room Air 10/01/24 07:29 BMI result Body Mass Index 32.1 Const: General: comfortable and no acute distress Eyes: Sclerae: sclerae normal Resp: Effort & Inspection: normal respiratory effort Cardio: Rate: regular rate GI: Other: No Browne's sign Palpation (GI): Soft to palpation, not firm and no guarding Objective Data Active Medications Acetaminophen (Acetaminophen 325 Mg Tablet) 650 mg PO Q6H PRN PRN Reason: Pain, Mild 1-3,fever,headache Calcium Carbonate (Calcium Carbonate 750 Mg Tab.Chew) 750 mg PO Q4H PRN PRN Reason: Heartburn Heparin Sodium (Porcine) (Heparin Sodium,Porcine 5,000 Unit/Ml Vial) 5,000 unit SUBCUT Q8H [facility] Last Admin: 10/01/24 07:12 Dose: Not Given Documented By: RADHIKA Non-Admin Reason: holding due to surgery today Lactated Ringer's (Lr) 1,000 mls @ 80 mls/hr IVCONT .[id number] [facility] Last Admin: 10/01/24 06:21 Dose: 80 mls/hr Documented By: SAIRAQC Piperacillin Sod/Tazobactam (Sod 3.375 gm/ Sodium Chloride) 50 mls @ 100 mls/hr IV Q6H [facility] Last Infusion: 10/01/24 08:06 Dose: Infused Documented By: RADHIKA Melatonin (Melatonin 3 Mg Tablet) 6 mg PO BEDTIME PRN PRN Reason: Insomnia Morphine Sulfate (Morphine Sulfate 4 Mg/Ml Cartridge) 2 mg IVPUSH Q4H PRN; Protocol PRN Reason: Pain, Severe (Pain Scale 7-10) Ondansetron HCl (Ondansetron Hcl 4 Mg/2 Ml Vial) 4 mg IVPUSH Q6H PRN PRN Reason: nausea Sodium Chloride (0.9 % Sodium Chloride Flush 3 Ml Syringe) 3 ml IVFLUSH QSHIFT [facility] Last Admin: 10/01/24 07:14 Dose: Not Given Documented By: RADHIKA Non-Admin Reason: IV Running Tamsulosin HCl (Tamsulosin Hcl 0.4 Mg Capsule) 0.4 mg PO DAILY [facility] Last Admin: 10/01/24 07:19 Dose: 0.4 mg Documented By: RADHIKA Labs 09/30/24 07:19 09/30/24 07:19 Microbiology Microbiology Results: Microbiology 09/29/24 13:37 Blood Culture - Preliminary Blood - Venous No growth after 24 hours. 09/29/24 13:37 Blood Culture - Preliminary Blood - Venous No growth after 24 hours. Procedures Date of Service Date of Service: 10/01/24 Progress Note: A&P Assessment and plan (1) Acute cholecystitis: Status: Acute Assessment and Plan: Ultrasound suggest stone impacted in the neck His symptoms have resolved However he wants to proceed with cholecystectomy as he states that he had severe symptoms on presentation He understands the technique of the planned procedure as was the risks, benefits, and alternatives He is on the add on schedule for today Time Spent With Patient Time: Total time managing care of this patient today ____ minutes. Quality Stroke Does the patient have a stroke diagnosis?: No VTE Prior VTE?: No VTE Risk Level:: Medical - moderate - high VTE Device Contraindication: N/A - Device Ordered VTE Drug Contraindication: N/A - Med Ordered
--- NOTE | 2024-10-01 13:08 | HO.ANESPROP2 ---
[facility] Active Problems Active Problems: All Active Problems Constipation (Acute) Acute cholecystitis (Acute) Colon cancer screening (Acute) Diastolic hypertension (Acute) Vitamin D deficiency (Acute) Elevated blood pressure reading (Acute) BPH with urinary obstruction (Acute) Skin cancer screening (Acute) Marijuana user (Acute) Obesity due to excess calories (Acute) Bladder disorder (Acute) Lower back pain (Acute) History of renal calculi (Acute) Encounter for general adult medical examination with abnormal findings (Acute) Family History Family history of problems with anesthesia: No Surgical History History of Problems with Anesthesia: No Social History Social History Household Members: Spouse and Children Housing: Apartment Do you presently have visiting nurse or other home services: No Patient Tobacco Use Status: Never used Tobacco e-Cigarette/Vaping Use: Never Used Substance Use Type: Marijuana service: No Current occupational status: employed Cognitive needs: No Hearing needs: No Vision needs: No Meds Allergies Allergy/AdvReac Type Severity Reaction Status Date / Time sulfamethoxazole Allergy Mild SEVERE Verified 09/29/24 05:56 [From Bactrim] ITCHINESS trimethoprim [From Bactrim] Allergy Mild SEVERE Verified 09/29/24 05:56 ITCHINESS clindamycin [Clindamycin] Allergy Unknown RASH Verified 09/29/24 05:56 Sulfa (Sulfonamide Allergy Unknown breathing Verified 09/29/24 05:56 Antibiotics) Clindamycin HCl Allergy Unknown Wheezing Uncoded 09/29/24 05:56 From KEFLEX Allergy Unknown RASH Uncoded 09/29/24 05:56 Active Medications: Current Medications Acetaminophen (Acetaminophen 325 Mg Tablet) 650 mg PO Q6H PRN PRN Reason: Pain, Mild 1-3,fever,headache Calcium Carbonate (Calcium Carbonate 750 Mg Tab.Chew) 750 mg PO Q4H PRN PRN Reason: Heartburn Heparin Sodium (Porcine) (Heparin Sodium,Porcine 5,000 Unit/Ml Vial) 5,000 unit SUBCUT Q8H [facility] Last Admin: 10/01/24 07:12 Dose: Not Given Lactated Ringer's (Lr) 1,000 mls @ 80 mls/hr IVCONT .[id number] [facility] Last Admin: 10/01/24 06:21 Dose: 80 mls/hr Piperacillin Sod/Tazobactam (Sod 3.375 gm/ Sodium Chloride) 50 mls @ 100 mls/hr IV Q6H [facility] Last Infusion: 10/01/24 08:06 Dose: Infused Melatonin (Melatonin 3 Mg Tablet) 6 mg PO BEDTIME PRN PRN Reason: Insomnia Morphine Sulfate (Morphine Sulfate 4 Mg/Ml Cartridge) 2 mg IVPUSH Q4H PRN; Protocol PRN Reason: Pain, Severe (Pain Scale 7-10) Ondansetron HCl (Ondansetron Hcl 4 Mg/2 Ml Vial) 4 mg IVPUSH Q6H PRN PRN Reason: nausea Sodium Chloride (0.9 % Sodium Chloride Flush 3 Ml Syringe) 3 ml IVFLUSH QSHIFT [facility] Last Admin: 10/01/24 07:14 Dose: Not Given Tamsulosin HCl (Tamsulosin Hcl 0.4 Mg Capsule) 0.4 mg PO DAILY [facility] Last Admin: 10/01/24 07:19 Dose: 0.4 mg Exam Height,Weight and Vital Signs: Height 5 ft 9 in Weight 98.7 kg Last Vital Signs Temp 97.2 F 10/01/24 07:29 Pulse 86 10/01/24 07:29 Resp 16 10/01/24 07:29 BP 168/77 H 10/01/24 07:29 Pulse Ox 96 10/01/24 07:29 O2 Del Method Room Air 10/01/24 07:29 Pertinent Lab Results Pertinent Lab Results: Laboratory Tests 09/29/24 09/29/24 09/30/24 08:55 09:36 07:19 WBC 12.8 H 6.9 RBC 4.84 4.57 L Hgb 15.1 14.1 Hct 44.5 42.3 MCV 91.9 92.6 MCH 31.2 30.9 MCHC 33.9 33.3 RDW 12.6 12.7 Plt Count 229 194 MPV 9.6 9.8 Immature Gran % (Auto) 0.4 0.3 Neut % (Auto) 74.7 H 58.1 Lymph % (Auto) 15.0 L 29.7 [place] % (Auto) 7.1 8.0 Eos % (Auto) 2.5 3.3 Baso % (Auto) 0.3 0.6 Lymph # (Auto) 1.9 2.0 [place] # (Auto) 0.9 0.6 Eos # (Auto) 0.3 0.2 Baso # (Auto) 0.0 0.0 Abs Immat Gran (auto) 0.05 H 0.02 Absolute Neuts (auto) 9.6 H 4.0 Absolute Nucleated RBC 0.000 0.000 Nucleated RBC % (auto) 0.0 0.0 Sodium 142 141 Potassium 4.5 4.1 Chloride 112 H 112 H Carbon Dioxide 23 24 Anion Gap 12 9 L BUN 15 13 Creatinine 0.90 0.94 Estim Creat Clear Calc 116.1 111.2 Estimated GFR > 60 > 60 Random Glucose 100 89 Calcium 9.0 8.6 Total Bilirubin 0.3 0.8 Direct Bilirubin 0.1 AST 19 20 ALT 27 22 Alkaline Phosphatase 52 49 Total Protein 6.4 L 5.7 L Albumin 4.2 3.8 Lipase 53 Urine Color Yellow Urine Appearance Cloudy Urine pH 7.0 Ur Specific [place] 1.025 Urine Protein Negative Urine Glucose (UA) Negative Urine Ketones Trace Urine Blood Negative Urine Nitrite Negative Ur Leukocyte Esterase Negative Influenza Type A (PCR) NEGATIVE Influenza Type B (PCR) NEGATIVE RSV RNA Qual (PCR) NEGATIVE SARS-CoV-2 RNA (RT-PCR) NEGATIVE Airway Mallampati Class: II TM Dist: >3cm Neck ROM: Full Heart: rrr Lungs: cta Assessment and Plan Assessment Anesthesia Assessment: Anesthesia Plan Discussed Final Anesthetic Review Family History of Problems with Anesthesia: No History of Problems with Anesthesia: No NPO: Yes ASA Class: II Final Preanesthetic Review: No Changes in Pt Med Stat, Meds/Allgs Chart Reviewed and Consent Obtained/Reviewed Patient Risk: Intermediate Procedure Risk: Low Anesthetic Plan Anesthetic Plan: GA Disposition: Standard PACU
--- NOTE | 2024-10-01 14:04 | MHC.CM.PN ---
EMR REVIEWED. PT IS AWAITING SURGERY FOR CHOLECYSTECTOMY, PAIN IMPROVING. CM WILL CONTINUE TO FOLLOW FOR ANY CHANGE TO DC PLAN.
--- NOTE | 2024-10-01 15:07 | W.PM.OPN ---
Operative Note Operative Note Date of Service: 10/01/24 Narrative: Preop diagnosis: Acute cholecystitis Postop diagnosis: acute cholecystitis with markedly indurated, inflamed gallbladder, stone impacted at the neck, gallbladder surrounded by thickly adherent omentum Procedure: Laparoscopic cholecystectomy Surgeon: Jovan Davis MD Sifter And Miller: IRINA Lofton student The patient is a 48-year-old male admitted because of an episode of upper abdominal pain. He had a CAT scan and ultrasound suggesting acute cholecystitis with a stone impacted at the neck. His symptoms had improved on admission. He wanted to proceed with cholecystectomy in view of his episodes of severe pain. He understood the technique of the planned procedure as well as the risks, benefits, and alternatives He was brought to the operating room. He was placed supine under general anesthesia via endotracheal tube. The abdomen was prepped and draped in the usual sterile fashion. A surgical time-out was done. The patient was receiving scheduled IV antibiotics I made a short supraumbilical incision with a blade 15.. This carried down through the full-thickness of the skin and subcutaneous fat down to the fascia. The fascia was incised. The peritoneum was entered. Through this incision a Francois port was introduced. Pneumoperitoneum was introduced to a pressure of 15 mm Hg. From here on, the rest of the procedure was done under vision with the 10 mm laparoscope Laparoscopic visualization and inserted a 5/12 mm port in the epigastric area below the subcostal margin. Two 5 mm ports introduced through a small stab incision. The subcostal margin along the anterior axillary line and the midclavicular line. Graspers were placed through these working ports. The patient was placed in head up and [id number] position. The gallbladder was seen and this was markedly thickened and indurated. This was also wrapped by omentum. I was able to however apply a grasper with difficulty on the fundus and this was used to retract the gallbladder cephalad. I then proceeded to gently dissect the omentum off of the anterior wall with the [place] dissector as well as with electrocautery. I carefully stripped off the markedly adherent omentum until was able to expose the anterior wall. This was achieved with some difficulty The neck of the gallbladder was seen. There was note of a stone which was impacted on this area. I carefully tried to push this stone using the grasper into the body of the gallbladder but this could not be done. I was able to gently apply a grasper on the pouch of the gallbladder although this kept tearing with a grasper in view of the impacted stone. I then proceeded to gently dissect the neck of the gallbladder with the tip of the machine shorthand reporter as well as with the [place] dissector W had to repeatedly reapply the grasper . Eventually I was able to see what appeared to be the cystic duct, the cystic artery as well as the lymph node of [place]. I gently the cystic duct with the [place] dissector to carefully define its confluence with the neck of the gallbladder. Once this was achieved, I proceeded to then apply clips with 2 clips being applied distally. The cystic duct was transected visiting clips with Endo scissors. I repeated this maneuver with the cystic artery. Again this was gently dissected and clips were applied. This was transected between clips with Endo scissors. At this point I was able to apply the grasper on the neck apply retraction. I divided across the hilum with combination of the electrocautery spatula as well as with the L hook. At some point, we had created a full-thickness tear on the of the gallbladder and some bile had spilled. This appeared to be thick and likely infected I continued to gently dissect the bladder off of the liver bed using careful dissection with the spatula, using electrocautery and blunt dissection, as well as with the L hook. We proceeded to separate the gallbladder from the liver bed all the way to the fundus. The gallbladder was eventually completely. This was retrieved through an endobag through the umbilical incision. I reinserted all ports and re-insufflated. I copiously irrigated. I suctioned out the irrigant fluid. In view of some oozing from the liver bed, I applied some Surgicel packing I observed all 4 quadrants. There was no other pathology or any evidence of any bowel injury or bile leak I observed the subhepatic space for a minute. There was no signs of any bleeding I then proceeded to therefore desufflated the port sites. I removed all ports under vision with the laparoscope. I removed the umbilical port last. I closed the fascia of the umbilical incision with a [id number] Polysorb 0 stitch Skin closure was achieved on all incisions using Polysorb 4-0 subcuticular running sutures. All incisions were infiltrated with Marcaine 0.5% for postop analgesia Dressings were applied and the procedure was completed The patient tolerated procedure well. There were no immediate complications. Initial and final counts of sponges and instruments were correct. Estimated blood loss was about 75 cc The patient was extubated without difficulty and transferred to the recovery room with stable vital signs.
[2024-10-01] MEDS: fentaNYL citrate/PF 100 MCG/2 ML VIAL 50 MCG IVPUSH ×2 (15:10→15:15)
[2024-10-01] MEDS: 0.9 % Sodium Chloride Flush 3 ML SYRINGE IVFLUSH ×2 (15:57→19:12)
--- NOTE | 2024-10-01 16:04 | PM.EVENT ---
Event Note Date of Service: 10/03/24 Event Note: Seen postop Status post lap sam earlier Seems to have adequate pain control Looks well Stable vital signs Abdomen soft The patient says he will stay overnight and likely discharged in the morning Family in the room - updated Time Spent With Patient Time: Total time managing care of this patient today ____ minutes.
[2024-10-01] MEDS: oxyCODONE HCl Immed Release 5 MG TABLET PO (17:00)
[2024-10-01] MEDS: Morphine Sulfate 4 MG/ML CARTRIDGE 2 MG IVPUSH (19:51)
[2024-10-01] MEDS: Heparin Sodium,Porcine 5,000 UNIT/ML VIAL 5000 UNIT SUBCUT (23:05)
[2024-10-02] MEDS: Piperacillin Sodium/Tazobactam 3.375 GM in 0.9 % Sodium Chloride 50 ML IV (02:15)
[2024-10-02] MEDS: Morphine Sulfate 4 MG/ML CARTRIDGE 2 MG IVPUSH (02:52)
[2024-10-02 03:30] VITALS: BP 117/70; PULSE 69; RESP 18; TEMP 36.9; O2SAT 96
--- NOTE | 2024-10-02 07:02 | PM.PNGS ---
Subjective Subjective Date of Service: 10/02/24 <Kirsty Basilio - Last Filed: 10/02/24 07:24> 10/02/24 <Clarisse Warner PA-C - Last Filed: 10/02/24 07:32> 10/02/24 <Jovan Davis MD - Last Filed: 10/02/24 07:51> Interval history: Sanford reports soreness in his abdomen today, centered above the umbilicus. He rated his pain as a constant 6/10. He was able to ambulate well yesterday and felt strong doing so. 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 No bowel movement. Reported ability to urinate. <Kirsty Basilio - Last Filed: 10/02/24 07:24> Sanford reports soreness in his abdomen today, centered above the umbilicus. He rated his pain as a constant 6/10. He was able to ambulate well yesterday and felt strong doing so. 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 No bowel movement. Reported ability to urinate. Using incentive spirometer. <Clarisse Warner PA-C - Last Filed: 10/02/24 07:32> Physical Exam Vital Signs: Vital Signs: Last Vital Signs Temp 98.4 F 10/02/24 03:30 Pulse 69 10/02/24 03:30 Resp 18 10/02/24 03:30 BP 117/70 10/02/24 03:30 Pulse Ox 96 10/02/24 03:30 O2 Del Method Room Air 10/02/24 03:30 BMI result Body Mass Index 32.1 <Kirsty Basilio - Last Filed: 10/02/24 07:24> Const: General: alert and awake <Kirsty Basilio - Last Filed: 10/02/24 07:24> Orientation/consciousness: patient oriented x3 <Kirsty Basilio - Last Filed: 10/02/24 07:24> Resp: Effort & Inspection: normal respiratory effort and able to speak in complete sentences <Kirsty Basilio - Last Filed: 10/02/24 07:24> Auscultation: clear to auscultation bilaterally <Kirsty Basilio - Last Filed: 10/02/24 07:24> Cardio: Rate: regular rate <Kirsty Vegao - Last Filed: 10/02/24 07:24> Rhythm: regular rhythm <Kirsty Vegao - Last Filed: 10/02/24 07:24> Peripheral pulses: radial pulses present <Kirsty Richmond - Last Filed: 10/02/24 07:24> GI: Other: Abdomen tender to palpation above the umbilicus. Normoactive bowel sounds, no dullness or hyprressonance to percussion. Incision site not fully observed due to bandage - waiting for Dr. Davis. <Kirsty Vegao - Last Filed: 10/02/24 07:24> Other: Abdomen tender to palpation above the umbilicus. Normoactive bowel sounds, no dullness or hyperessonance to percussion. dressings clean and intact <Clarisse Warner PA-C - Last Filed: 10/02/24 07:32> Palpation (GI): Soft to palpation and Tenderness to palpation present (GI) (mild incisional tenderness ) <Clarisse Warner PA-C - Last Filed: 10/02/24 07:32> Skin: General skin exam: no rashes or lesions noted and no jaundice <Clarisse Warner PA-C - Last Filed: 10/02/24 07:32> Neuro: General: patient oriented x3 <Kirsty Vegao Last Filed: 10/02/24 07:24> Objective Data Active Medications Acetaminophen (Acetaminophen 325 Mg Tablet) 650 mg PO Q6H PRN PRN Reason: Pain, Mild 1-3,fever,headache Calcium Carbonate (Calcium Carbonate 750 Mg Tab.Chew) 750 mg PO Q4H PRN PRN Reason: Heartburn Heparin Sodium (Porcine) (Heparin Sodium,Porcine 5,000 Unit/Ml Vial) 5,000 unit SUBCUT Q8H [facility] Last Admin: 10/01/24 23:05 Dose: 5,000 unit Documented By: DAVID Piperacillin Sod/Tazobactam (Sod 3.375 gm/ Sodium Chloride) 50 mls @ 100 mls/hr IV Q6H [facility] Last Infusion: 10/02/24 02:48 Dose: Infused Documented By: DAVID Melatonin (Melatonin 3 Mg Tablet) 6 mg PO BEDTIME PRN PRN Reason: Insomnia Morphine Sulfate (Morphine Sulfate 4 Mg/Ml Cartridge) 2 mg IVPUSH Q4H PRN; Protocol PRN Reason: Pain, Severe (Pain Scale 7-10) Last Admin: 10/02/24 02:52 Dose: 2 mg Documented By: DAVID Naloxone HCl (Naloxone Hcl 0.4 Mg/Ml Vial) 0.04 mg IVPUSH Q5M PRN PRN Reason: Excessive sedation or RR < 8 Ondansetron HCl (Ondansetron Hcl 4 Mg/2 Ml Vial) 4 mg IVPUSH Q6H PRN PRN Reason: nausea Oxycodone HCl (Oxycodone Hcl Immed Release 5 Mg Tablet) 5 mg PO Q4H PRN PRN Reason: Pain, Moderate(Pain Scale 4-6) Last Admin: 10/01/24 17:00 Dose: 5 mg Documented By: RADHIKA Sodium Chloride (0.9 % Sodium Chloride Flush 3 Ml Syringe) [facility] Last Admin: 10/01/24 19:12 Dose: 3 ml Documented By: DAVID Tamsulosin HCl (Tamsulosin Hcl 0.4 Mg Capsule) 0.4 mg PO DAILY [facility] Last Admin: 10/01/24 07:19 Dose: 0.4 mg Documented By: RADHIKA <Kirsty Basilio - Last Filed: 10/02/24 07:24> Labs CBC & Chem 7: 09/30/24 07:19 09/30/24 07:19 <Kirsty Basilio - Last Filed: 10/02/24 07:24> Microbiology Microbiology Results: Microbiology 09/29/24 13:37 Blood Culture - Preliminary Blood - Venous No growth after 48 hours. 09/29/24 13:37 Blood Culture - Preliminary Blood - Venous No growth after 48 hours. <Kirsty Basilio - Last Filed: 10/02/24 07:24> Procedures Date of Service Date of Service: 10/02/24 <Kirsty Basilio - Last Filed: 10/02/24 07:24> 10/02/24 <Clarisse Warner PA-C - Last Filed: 10/02/24 07:32> 10/02/24 <Jovan Davis MD - Last Filed: 10/02/24 07:51> Progress Note: A&P Assessment and plan (1) Acute cholecystitis: Status: Acute <Kirsty Vegao - Last Filed: 10/02/24 07:24> Assessment and Plan: Feels well this morning Good pain control No events reported Tolerating diet He feels ready to be discharged Wound care instructions given I will see him in the office for postop check Seen and examined independently <Jovan Davis MD - Last Filed: 10/02/24 07:51> (2) S/P laparoscopic cholecystectomy: Status: Acute <Kirsty Skinnercomo - Last Filed: 10/02/24 07:24> Assessment and Plan: Sanford is post-op day 1 from his laparoscopic cholecystectomy. He reports soreness and pain above the umbilicus rating a 6/10, where one of his incision sites is located. He was able to ambulate after surgery, and felt strong. He has some appetite and ate a light dinner last night, no nausea or vomitting. No bowel movement reported, but able to urinate. Pain is managed with morphine, he also recieved Zoysn and heparin. Sanford can go home today with a pain medication regimen, and education on how to care for his incision sites. He will be able to shower tomorrow, no lifting over 5-10 pounds. He can follow-up with Dr. Pugh in one week. <Kirsty Skinnercomo - Last Filed: 10/02/24 07:24> Sanford is post-op day 1 from his laparoscopic cholecystectomy. He reports soreness and pain above the umbilicus rating a 6/10, where one of his incision sites is located. He was able to ambulate after surgery, and felt strong. He has some appetite and ate a light dinner last night, no nausea or vomitting. No bowel movement reported, but able to urinate. Pain is managed with morphine, he also recieved Zoysn and heparin. Sanford can go home today with a pain medication regimen, and education on how to care for his incision sites. He will be able to shower tomorrow, no lifting over 5-10 pounds. He can follow-up with Dr. Davis in one week. Agree with above assessment and plan by Kirsty ESTRADA. Patient doing well post op, tolerating solid diet and pain well controlled. VSS. Abd exam benign, dressings clean and intact, appropriate post op tenderness. Stable for dc to home today, f/u in office in 2 weeks. Patient comfortable with plan. <Clarisse Warner PA-C - Last Filed: 10/02/24 07:32> Time Spent With Patient Time: Total time managing care of this patient today ____ minutes. <Kirsty Richmond - Last Filed: 10/02/24 07:24> Quality Stroke Does the patient have a stroke diagnosis?: No <Kirsty Richmond - Last Filed: 10/02/24 07:24> VTE Prior VTE?: No <Kirsty Vegao - Last Filed: 10/02/24 07:24> VTE Risk Level:: Medical - moderate - high <Kirsty Richmond - Last Filed: 10/02/24 07:24> VTE Device Contraindication: N/A - Device Ordered <Kirsty Richmond - Last Filed: 10/02/24 07:24> VTE Drug Contraindication: N/A - Med Ordered <Kirsty Vegao - Last Filed: 10/02/24 07:24>
[2024-10-02 07:43] VITALS: BP 136/77; PULSE 65; RESP 12; TEMP 36.6; O2SAT 98
[2024-10-02] MEDS: oxyCODONE HCl Immed Release 5 MG TABLET PO (08:02)
[2024-10-02] MEDS: Tamsulosin HCL 0.4 MG CAPSULE PO (08:02)
--- NOTE | 2024-10-02 08:24 | MHC.CM.PN ---
DP: PT HAS BEEN MEDICALLY CLEARED FOR DC HOME, NO SERVICES. PT HAS OWN RIDE HOME
--- NOTE | 2024-10-02 08:24 | HO.POSTANES ---
Post Anesthesia Evaluation Post Anesthesia Evaluation Date of Service: 10/02/24 Vital Signs: Vital Signs Temp Pulse Resp BP Pulse Ox O2 Del Method 10/02/24 07:43 97.8 F 65 12 136/77 98 Room Air 10/02/24 03:30 98.4 F 69 18 117/70 96 Room Air 10/01/24 23:05 98.9 F 71 18 121/76 98 Room Air Anesthesia: General Endotracheal-GETA Mental Status: Awake Pain Control: Satisfactory Nausea/Vomiting: None Hydration: Adequate Anesthesia-Related Issues: No Anes. Related Issues
--- NOTE | 2024-10-02 13:55 | PM.DS ---
DS: Providers Provider Date of Service: 10/02/24 Date of admission: 09/29/24 14:41 Date of discharge: 10/02/24 Primary care physician: Jc Kaiser MD Attending physician on admission: Jovan Davis DS: Diagnosis Discharge Diagnosis (1) Acute cholecystitis: Status: Acute (2) S/P laparoscopic cholecystectomy: Status: Acute DS: Summary Hospital Course Hospital Course: HPI AT ADMISSION: Sanford Bower is a 48 year old male here because of upper abdominal pain last night. He says this started around 930 at night. He says this was ?severe?. This persisted throughout the night so he came to the emergency room this morning He says the pain has actually subsided significantly. He denies any nausea or vomiting. He has never had any similar episodes in the past. He says he has no significant medical problems except for BPH. He denies any fever or chills. Ultrasound and CT scan suggest a gallstone impacted in the neck of the gallbladder with possible cholecystitis HOSPITAL COURSE: The patient was admitted to the surgical service for further treatment of the acute cholecystitis. Due to the severity of pain he wanted to proceed with cholecystectomy. ## elected to proceed with laparoscopic cholecystectomy, possible open. Unfortunately due to anesthesia staffing the procedure timing was delayed. On 10/01/24, a laparoscopic cholecystectomy was performed by Dr. Davis without complication. The patient tolerated the procedure well. She had an uncomplicated recovery course. On POD #1, she felt well and was tolerating a solid diet without nausea or vomiting, had good pain control and was ambulating without difficulty. He was hemodynamically stable. His abdomen was benign with appropriate post op tenderness and clean and intact dressings. He felt ready for discharge. He was discharged to home on 10/02/24 in stable condition. He is to follow up in the office in 2 weeks. Status at Discharge Functional status at discharge: independent ambulation Overall status at discharge: patient is progressing back to baseline Time Attestation Discharge Coordination Time (in mins): 30 Quality: Safe Use of Opioids Does Pt have an Active Cancer Diagnosis on the Problem List?: No Quality: Stroke Does the patient have a stroke diagnosis?: No Physical Exam Vital Signs: Vital Signs: Last Vital Signs Temp 97.8 F 10/02/24 07:43 Pulse 65 10/02/24 07:43 Resp 12 10/02/24 07:43 BP 136/77 03/27/25 07:43 Pulse Ox 98 10/02/24 07:43 O2 Del Method Room Air 10/02/24 07:43 BMI result Body Mass Index 32.1 Const: General: comfortable, no acute distress and alert Orientation/consciousness: patient oriented x3 Resp: Effort & Inspection: normal respiratory effort GI: Other: dressings clean and intact Inspection: No distended Palpation (GI): Soft to palpation and Tenderness to palpation present (GI) (mild incisional) Skin: General skin exam: no rashes or lesions noted and no jaundice Neuro: General: patient oriented x3 and moves all extremities DS: Data Data Completed and Pending Pending studies at discharge: Pending at discharge 10/01/24 14:30 Surgical [PTH] Routine Labs on day of discharge: Preliminary micro results at discharge 09/29/24 13:37 Blood Culture - Preliminary Blood - Venous No growth after 48 hours. 09/29/24 13:37 Blood Culture - Preliminary Blood - Venous No growth after 48 hours. Discharge Plan Discharge Anticipated Discharge Date/Time: 10/02/24 14:10 Patient Disposition: Home, Self-Care Discharge Diagnosis: acute cholecystitis Referrals: Jc Kaiser MD [Primary Care Provider] - 1 Week Jovan Davis MD [Physician] - 2 Weeks Discharge Medications: New oxycodone 5 mg tablet 5 mg PO Q4H PRN (Reason: pain (scale score 7-10)) Qty: 26 0RF Rx Instructions: Partial Fill upon patient request. docusate sodium [Colace] 100 mg capsule 100 mg PO BID PRN (Reason: constipation) Qty: 30 0RF ibuprofen 600 mg tablet 600 mg PO Q6H PRN (Reason: pain) Qty: 30 0RF Continued tamsulosin [Flomax] 0.4 mg capsule 0.4 mg PO DAILY Qty: 90 1RF cholecalciferol (vitamin D3) 25 mcg (1,000 unit) capsule 25 mcg PO DAILY 90 Days Qty: 90 1RF Discharge Orders: Discharge Order (Routine); Ordered 10/02/24 Ordered By: Clarisse Warner Diet: Low fat, low cholesterol Activity on Discharge: As tolerated Stand Alone Forms: Patient Portal Discharge page, Work/School Release Print Language: Greenlandic Activity Restrictions/Additional Instructions: If the incision area is tender, you may apply an ice pack for short intervals (No more than 20 minutes on, followed by at least 20 minutes off). Do not apply heat. Do not use creams, lotions, or topical antibiotics. These can cause infection or allergic reaction. Ok to shower 24 hours after your surgery. Remove bandaids in 2 days and replace. You have steri strips (small white cloth strips) covering your incision- these will fall off ~1 week. Follow up in office with Dr. Davis in 2 weeks. ([phone]) No heavy lifting (>10-20lbs) or strenuous activity! Call Your Doctor If: -Your temperature exceeds 101.5? F -You experience excessive pain or swelling -You have an unexpected reaction to medication -You have excessive bleeding -You experience continued vomiting/nausea -Your incision begins to separate -Your incision shows signs of infection such as increased redness, swelling, excessive pain, drainage (light blood or clear fluid is normal) or heat Care Plan Goals: Return to baseline health and resume normal activities as tolerated. Health Concerns: acute cholecystitis Plan of Treatment: s/p laparoscopic cholecystectomy F/u in office in 2 weeks Assessment: Doing well post op. Discharge Date/Time: 10/02/24 09:16
--- NOTE | 2024-10-06 13:50 | P.OP_ITS ---
Operative Note Operative Note Date of Service: 10/06/24 Narrative: Preop diagnosis: Acute cholecystitis Postop diagnosis: Acute cholecystitis, with a large gallstone impacted at the neck Procedure: Laparoscopic cholecystectomy Surgeon: Jovan Davis MD research assistant professor: IRINA Warner The patient is a 40 I made a short supraumbilical incision with a blade 15.. This carried down through the full-thickness of the skin and subcutaneous fat down to the fascia. The fascia was incised. The peritoneum was entered. Through this incision a Frnacois port was introduced. Pneumoperitoneum was introduced to a pressure of 15 mm Hg. From here on, the rest of the procedure was done under vision with the 10 mm laparoscope Laparoscopic visualization and inserted a 5/12 mm port in the epigastric area below the subcostal margin. Two 5 mm ports introduced through a small stab incision. The subcostal margin along the anterior axillary line and the midclavicular line. Graspers were placed through these working ports. The patient was placed in head up and [id number] position. The gallbladder was seen and this was markedly thickened and indurated. This was also wrapped by omentum. I was able to however apply a grasper with difficulty on the fundus and this was used to retract the gallbladder cephalad. I then proceeded to gently dissect the omentum off of the anterior wall with the [place] dissector as well as with electrocautery. I carefully stripped off the markedly adherent omentum until was able to expose the anterior wall. This was achieved with some difficulty The neck of the gallbladder was seen. There was note of a stone which was imp acted on this area. I carefully tried to push this stone using the grasper into the body of the gallbladder but this could not be done. I was able to gently apply a grasper on the pouch of the gallbladder although this kept tearing with a grasper in view of the impacted stone. I then proceeded to gently dissect the neck of the gallbladder with the tip of the central supply clerk as well as with the [place] dissector W had to repeatedly reapply the grasper . Eventually I was able to see what appeared to be the cystic duct, the cystic artery as well as the lymph node of [place]. I gently the cystic duct with the [place] dissector to carefully define its confluence with the neck of the gallbladder. Once this was achieved, I proceeded to then apply clips with 2 clips being applied distally. The cystic duct was transected visiting clips with Endo scissors. I repeated this maneuver with the cystic artery. Again this was gently dissected and clips were applied. This was transected between clips with Endo scissors. At this point I was able to apply the grasper on the neck apply retraction. I divided across the hilum with combination of the electrocautery spatula as well as with the L hook. At some point, we had created a full-thickness tear on the of the gallbladder and some bile had spilled. This appeared to be thick and likely infected I continued to gently dissect the bladder off of the liver bed using careful dissection with the spatula, using electrocautery and blunt dissection, as well as with the L hook. We proceeded to separate the gallbladder from the liver bed all the way to the fundus. The gallbladder was eventually completely. This was retrieved through an endobag through the umbilical incision. I reinserted all ports and re-insufflated. I copiously irrigated. I suctioned out the irrigant fluid. In view of some oozing from the liver bed, I applied some Surgicel packing I observed all 4 quadrants. There was no other pathology or any evidence of any bowel injury or bile leak I observed the subhepatic space for a minute. There was no signs of any bleeding I then proceeded to therefore desufflated the port sites. I removed all ports under vision with the laparoscope. I removed the umbilical port last. I closed the fascia of the umbilical incision with a [id number] Polysorb 0 stitch Skin closure was achieved on all incisions using Polysorb 4-0 subcuticular running sutures. All incisions were infiltrated with Marcaine 0.5% for postop analgesia Dressings were applied and the procedure was completed The patient tolerated procedure well. There were no immediate complications. Initial and final counts of sponges and instruments were correct. Estimated blood loss was about 75 cc The patient was extubated without difficulty and transferred to the recovery room with stable vital signs.
== END 2024-10-02 09:16 | disposition home or self-care (01) | DRG 263 ==
LOC: HO.ED 14:37 → HO.EDOVER 14:48 → HO.S3 09-30 11:47
PROVIDERS: Physician Assistant Medical; Admitting Provider Surgery; Emergency Provider Emergency Medicine Emergency Medical Services; PCP Internal Medicine; Visit Provider Surgery
PROC: 0FT44ZZ Resection of Gallbladder, Percutaneous Endoscopic Approach (ICD-10-PCS; CPT 47562; principal; 2024-10-01 13:00)
DX: K80.01 Calculus of gallbladder with acute cholecystitis with obstruction (principal); Z20.822 Contact with and (suspected) exposure to COVID-19; Z79.899 Other long term (current) drug therapy
CPT/HCPCS: 47562; 0241U; 36415; 74177; 76705; 80048; 80053; 80076; 81003; 83690; 85025; 87040; 88304; 99221; 99285; J0330; J1100; J1644; J1885; J2003; J2250; J2270; J2405; J2543; J2704; J2795; J3010; J7120; Q9967

== ENCOUNTER → 2024-09-29 10:15 | Outpatient (BNV) | payer OTHER, SELFPAY | PROVIDERS: Emergency Provider Emergency Medicine Emergency Medical Services; PCP Internal Medicine; Visit Provider Radiology Diagnostic Radiology | DX: K80.20 Calculus of gallbladder without cholecystitis without obstruction (principal); R10.13 Epigastric pain; R11.0 Nausea | CPT/HCPCS: 74177; 76705 ==

== ENCOUNTER → 2024-09-29 14:41 | Outpatient (BNV) | payer OTHER, SELFPAY | PROVIDERS: Admitting Provider Surgery; Emergency Provider Emergency Medicine Emergency Medical Services; PCP Internal Medicine; Visit Provider Surgery | DX: K81.0 Acute cholecystitis (principal); Z90.49 Acquired absence of other specified parts of digestive tract | CPT/HCPCS: 99222; 99232; 99238; 99499 ==

== ENCOUNTER 2024-10-14 08:29 | Outpatient (AMB) | payer OTHER, SELFPAY ==
--- NOTE | 2024-10-14 08:51 | MHC.OFFVIS ---
Vital Signs 10/14/24 08:59 Height 5 ft 8 in Weight 211 lb BMI 32.1 BP 128/88 Blood Pressure Location Rt brachial Position Sitting Pulse 81 Intake Visit Reasons: S/P lap sam Intake Note: Patient here s/p Laparoscopic cholecystectomy. Reports incision healed well. 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 Only took rx pain meds for the first two days. Nib Inspector Required: No Accompanied by: Self / Same As Patient Allergies sulfamethoxazole [From Bactrim] Allergy (Mild, Verified 10/14/24 08:58) SEVERE ITCHINESS trimethoprim [From Bactrim] Allergy (Mild, Verified 10/14/24 08:58) SEVERE ITCHINESS clindamycin [Clindamycin] Allergy (Unknown, Verified 10/14/24 08:58) RASH Sulfa (Sulfonamide Antibiotics) Allergy (Unknown, Verified 10/14/24 08:58) breathing Clindamycin HCl Allergy (Unknown, Uncoded 10/14/24 08:58) Wheezing From KEFLEX Allergy (Unknown, Uncoded 10/14/24 08:58) RASH HPI HPI S/P lap sam: Details: 48-year-old male here for a postop visit. He underwent laparoscopic cholecystectomy for acute cholecystitis last 10/07/2019 5. He tolerated procedure well and was discharged on postop day 1. He says he is doing well at home. He denies any GI complaints. COUNT INCLUDES THE [facility] Surgical History History of back surgery Hx of rotator cuff surgery Social History Household Members: Spouse and Children Housing: Apartment Do you presently have visiting nurse or other home services: No Patient Tobacco Use Status: Never used Tobacco e-Cigarette/Vaping Use: Never Used Substance Use Type: Marijuana service: No Current occupational status: employed Cognitive needs: No Hearing needs: No Vision needs: No Review of Systems Const Denies chills and Denies fever(s) Card Denies chest pain, Denies dyspnea and Denies dyspnea on exertion Resp Denies cough, Denies dyspnea and Denies dyspnea on exertion GI Denies hematochezia and Denies change in bowel habits Denies hematuria and Denies difficulty urinating Musc Denies back pain and Denies limited range of motion Neuro Denies focal weakness and Denies convulsions Psych Denies depression and Denies mood swings Physical Exam Vital Signs: Last Vital Signs Pulse 81 10/14/24 08:59 BP 128/88 10/14/24 08:59 BMI result Body Mass Index 32.1 Const General: comfortable and no acute distress Eyes Other: Anicteric sclerae Resp Effort & Inspection: normal respiratory effort GI Other: All incisions are clean and dry and well healed Palpation (GI): Soft to palpation, not firm, nontender and no guarding Assessment & Plan Assessment & Plan (1) S/P laparoscopic cholecystectomy: Code(s): Z90.49 - Acquired absence of other specified parts of digestive tract Category: Surgical Plan: He is doing well postoperatively. All incisions are well healed. He has good oral intake I advised him to avoid lifting anything more than 20 lb for about 2 more weeks. He can otherwise follow up on a p.r.n. basis. Coding Level of Care Code Global (17373) Diagnoses S/P laparoscopic cholecystectomy Z90.49
[2024-10-14 08:59] VITALS: BP 128/88; PULSE 81; BMI 32.1
== END 2024-10-14 09:20 | disposition home or self-care (01) ==
LOC: HO.HGS 08:29
PROVIDERS: PCP Internal Medicine; Visit Provider Surgery
DX: Z90.49 Acquired absence of other specified parts of digestive tract (principal)
CPT/HCPCS: 99024

== ENCOUNTER → 2024-10-14 08:29 | Outpatient (BNVA) | payer OTHER, SELFPAY | PROVIDERS: PCP Internal Medicine; Visit Provider Surgery | DX: Z48.815 Encounter for surgical aftercare following surgery on the digestive system (principal); Z90.49 Acquired absence of other specified parts of digestive tract; Z98.890 Other specified postprocedural states | CPT/HCPCS: 99212 ==

== ENCOUNTER 2025-01-06 15:03 | Outpatient (REF) | payer OTHER, SELFPAY ==
--- NOTE | ~2025-01-06 | XR_ITS ---
EXAMINATION: XR SHOULDER, LEFT CLINICAL INFORMATION: S49.92XA - Unspecified injury of left shoulder and upper arm, initial, painful lump mid clavicular region, limited range of motion COMPARISON: None available. TECHNIQUE: AP external rotation, Y view, and Grashey view of the left shoulder. FINDINGS: There is a subacromial spur. There are mild degenerative changes in the AC joint. There is degenerative sclerotic changes in the greater tuberosity. Marginal osteophytes are present involving humeral head and glenoid. There is no dislocation or AC joint separation XR/XR shoulder LT min 2V IMPRESSION: Mild degenerative changes. Subacromial spur. Electronically signed by: Stephan Walker MD 01/06/2025 03:55 PM EDT
== END 2025-01-06 15:04 | disposition home or self-care (01) ==
LOC: HO.HMGCX 15:03
PROVIDERS: PCP Internal Medicine; Visit Provider Internal Medicine
DX: S49.92XA Unspecified injury of left shoulder and upper arm, initial encounter (principal); L72.0 Epidermal cyst
CPT/HCPCS: 73030; 96127; 99212

== ENCOUNTER 2025-01-06 15:03 | Outpatient (AMB) | payer OTHER, SELFPAY ==
[2025-01-06 15:09] VITALS: BP 126/84; PULSE 76; TEMP 36.6; O2SAT 97; BMI 31.6
--- NOTE | 2025-01-06 15:09 | A.OFFPC_ITS ---
Vital Signs 01/06/25 15:09 Height 5 ft 8 in Weight 208 lb BMI 31.6 BP 126/84 Blood Pressure Location Rt brachial Position Sitting Pulse 76 Pulse Source Pulse Oximeter Temp 97.8 F Temp Source Temporal Artery Scan Pulse Oximetry (%) 97 Oxygen Delivery Method Room Air Intake Visit Reasons: Lump on back of Neck Intake Note: Patient presents with on the back of his neck times 3 months. Patient had someone squeeze it today and pus and blood flowed out Review Appraiser Required: No Allergies sulfamethoxazole (From Bactrim) Allergy (Mild, Verified 01/06/25 15:18) SEVERE ITCHINESS trimethoprim (From Bactrim) Allergy (Mild, Verified 01/06/25 15:18) SEVERE ITCHINESS clindamycin (Clindamycin) Allergy (Unknown, Verified 01/06/25 15:18) RASH Sulfa (Sulfonamide Antibiotics) Allergy (Unknown, Verified 01/06/25 15:18) breathing Clindamycin HCl Allergy (Unknown, Uncoded 10/14/24 08:58) Wheezing From KEFLEX Allergy (Unknown, Uncoded 10/14/24 08:58) RASH Medication List - Last Reconciled 01/06/25 by Jc Kaiser MD cholecalciferol (vitamin D3) 25 mcg PO DAILY 90 days ibuprofen 600 mg PO Q6H PRN tamsulosin (Flomax) 0.4 mg PO DAILY Tobacco use date assessed: 01/06/25 Dental Screening Dental Screen Date: 01/25/24 Did you have a dental visit in the last 12 months?: Yes Did you have a dental problem in the last 6 months where you did not have access to dental care?: No Was dental information given to patient?: Patient has dentist HPI Lump on back of Neck HPI Details History - The patient is a 49-year-old male pres enting with concerns about a lump on the neck and a shoulder injury. - Sebaceous cyst on the neck: The patien t reports a lump on the back of the neck present for several months, same size non tender - The lump is described as soft, movable , and non-tender, with no change in size over time. - Shoulder injury: The patient reports a shoulder injury sustained a few weeks ago after falling over the handlebars of a bike when the dog ran in front of it. - The patient describes persistent el ess and a visible lump on the shoulder, with pain exacerbated by movement. Problem List - Sebaceous cyst on the neck - Shoulder injury left Patient Instructions - Monitor the cyst on the neck for any c hanges in size or symptoms. - Follow up for an x-ray of the shoulder to assess the injury further. - Apply ice to the shoulder to help redu ce pain and swelling. Review of Systems - General: No fever no chills - Neurological: No headaches no dizziness - Ear nose throat: No sore throat no hearing difficulty no ear pain - Cardiovascular: No syncope, no chest pain, no palpitations - Gastrointestinal: No nausea vomiting or diarrhea - Endocrine: No polyuria polydipsia no heat intolerance - Genitourinary: No dysuria , no blood in urine Physical Exam General: No acute distress HEENT: No acute findings Neck: Supple, with a benign, soft, movable sebaceous cyst on the back of the neck, size of a nickel, not painful to press Respiratory system: Able to talk in full sentences, no audible wheeze Cardiovascular: S1-S2 regular in rate and rhythm Gastrointestinal: No pain Extremities: Left shoulder with pain, ROM intact but sore with extension and abduction, lump seen and felt on top close to rotator cuff, mild tender to pressure PER DIEM PHYSICAL THERAPIST: Alert awake oriented x3 motor sensory intact Skin: Normal turgor PFSH Surgical History History of back surgery Hx of rotator cuff surgery Social History Household Members: Spouse and Children Housing: Apartment Do you presently have visiting nurse or other home services: No Patient Tobacco Use Status: Never used Tobacco e-Cigarette/Vaping Use: Never Used Substance Use Type: Marijuana service: No Current occupational status: employed Cognitive needs: No Hearing needs: No Vision needs: No Questionnaire PHQ-9 Over the last 2 weeks, how often have you been bothered by any of the following problems? 1. Little interest or pleasure in doing things: not at all 2. Feeling down, depressed, or hopeless: not at all 3. Trouble falling or staying asleep, or sleeping too much: nearly every day 4. Feeling tired or having little energy: several days 5. Poor appetite or overeating: not at all 6. Feeling bad about yourself - or that you are a failure or have let yourself or your family down: not at all 7. Trouble concentrating on things, such as reading the newspaper or watching television: not at all 8. Moving or speaking so slowly that other people could have noticed. Or the opposite - being so fidgety or restless that you have been moving around a lot more than usual: not at all 9. Thoughts that you would be better off or of hurting yourself in some way: not at all Total score: 4 Depression Screening Interpretation: Positive Depression Screening Done: Yes [id number] - PHQ-9 Billing: Yes Source: Developed by Drs. Armen Moore, Emily Fragoso, Hay Veloz and colleagues, with an educational richard from [employer]. Thrive Questionnaire Date Thrive assessed: 01/06/25 I am a: Patient What is your living situation today?: I have a steady place to live Within the past 12 months, did the food you bought not last and you didn't have the money to get more?: Sometimes True Within the past 12 months, did you worry whether your food would run out before you got money to buy more?: Never true Do you have trouble paying for medicines?: No Do you have trouble getting transportation to medical appointments?: No Do you have trouble paying your heating and electricity bill?: Yes Do you have trouble taking care of your child, family member or friend?: No Do you have trouble with day-to-day activities such as bathing, preparing meals, shopping, managing finances, etc.?: No Are you currently unemployed and looking for a job?: No Are you interested in more education?: No Please select the resources that you would like help with: Utilities Currently or been in a relationship where the following occur: I choose not to answer THRIVE Score: 2 AUDIT C Alcohol Use Questionnaire (AUDIT-C) 2. How many drinks containing alcohol do you have on a typical day when you are drinking?: 3 or 4 Total Score: 1 PAULETTE-7 AMB Questionnaire PAULETTE-7 Date PAULETTE - 7 assessed: 01/25/24 Feeling nervous, anxious, or on edge: 1 = Several days Not being able to stop or control worryin = Not at all Worrying too much about different things: 0 = Not at all Trouble relaxin = Several days Being so restless that it is hard to sit still: 2 = More than half the days Becoming easily annoyed or irritable: 0 = Not at all Feeling afraid as if something awful might happen: 0 = Not at all Total PAULETTE-7 score (0-4 normal; 5-9 mild; 10-14 moderate; 15-21 severe): 4 Source: Developed by Drs. Armen Moore, Emily Fragoso, Hay Veloz and colleagues, with an educational richard from [employer]. Physical exam (Primary Care) Vital Signs: Last Vital Signs Temp 97.8 F 01/06/25 15:09 Pulse 76 01/06/25 15:09 BP 126/84 01/06/25 15:09 Pulse Ox 97 01/06/25 15:09 Oxygen Delivery Method Room Air 01/06/25 15:09 BMI result Body Mass Index 31.6 Tobacco/Smoking Status: Tobacco use Status Tobacco use date assessed 01/06/25 01/06/25 15:20 Patient Tobacco Use Status Never used Tobacco 01/06/25 15:20 e-Cigarette/Vaping Use Never Used 01/06/25 15:20 PHQ-9: PHQ-9 Score PHQ-9: Total score 4 01/06/25 15:20 Depression Screening Interpretation: Positive Thrive Assessment: Date of Thrive Assessment Date Thrive assessed 01/06/25 01/06/25 15:20 Currently or been in a relationship where the following occur: I choose not to answer Coding Level of Care Code Est Pt Level 3 (68216) Diagnoses Injury of left shoulder, initial encounter S49.92XA Encounter type: initial encounter Cyst of skin and subcutaneous tissue L72.0 Additional Codes PHQ-9 - 56243 - PHQ-9 Billing: Yes ([id number]) Assessment & Plan Assessment & Plan (1) Injury of shoulder, left: Code(s): S49.92XA - Unspecified injury of left shoulder and upper arm, initial encounter Category: Medical Qualifiers: Encounter type: initial encounter Qualified Code(s): S49.92XA - Unspecified injury of left shoulder and upper arm, initial encounter (2) Cyst of skin and subcutaneous tissue: Code(s): L72.0 - Epidermal cyst Category: Medical Plan History - The patient is a 49-year-old male presenting with concerns about a lump on the neck and a shoulder injury. - Sebaceous cyst on the neck: The patient reports a lump on the back of the neck present for several months, same size non tender - The lump is described as soft, movable, and non-tender, with no change in size over time. - Shoulder injury: The patient reports a shoulder injury sustained a few weeks ago after falling over the handlebars of a bike when the dog ran in front of it. - The patient describes persistent soreness and a visible lump on the shoulder, with pain exacerbated by movement. Problem List - Sebaceous cyst on the neck - Shoulder injury left Patient Instructions - Monitor the cyst on the neck for any changes in size or symptoms. - Follow up for an x-ray of the shoulder to assess the injury further. - Apply ice to the shoulder to help reduce pain and swelling. Orders: Orders XR shoulder LT min 2V Today S49.92XA - Unspecified injury of left shoulder and upper arm, initial encounter
== END 2025-01-06 16:29 | disposition home or self-care (01) ==
LOC: HO.HMCC 15:04
PROVIDERS: PCP Internal Medicine; Visit Provider Internal Medicine
DX: S49.92XA Unspecified injury of left shoulder and upper arm, initial encounter (principal); L72.0 Epidermal cyst

== ENCOUNTER → 2025-01-06 15:37 | Outpatient (BNV) | payer OTHER, SELFPAY | PROVIDERS: PCP Internal Medicine; Visit Provider Radiology Diagnostic Radiology | DX: M25.712 Osteophyte, left shoulder (principal) | CPT/HCPCS: 73030 ==